=== PATIENT | male | born 1935 | race Caucasian/White ===

== ENCOUNTER 2019-04-21 10:30 | Inpatient (IN) ==
[2019-04-21] MEDS ORDERED: NS 1,000 ML IV ONE ×2 (10:59→12:19)
[2019-04-21] MEDS ORDERED: CARDIZEM IV ONE (10:59)
[2019-04-21] MEDS ORDERED: FENTANYL IV ONE (11:17)
[2019-04-21 11:23] LABS: BASO# 0.03 X1000 (0.0-0.2); BASO% 0.2 % (0.0-0.8); HEMATOCRIT 48.5 % (42.0-52.0); IMM GRAN# 0.05 X1000 (0.0-0.04); IMM GRAN% 0.3 % (0.0-0.5); LYMPH# 0.95 X1000 (1.2-3.4); LYMPH% 5.5 % (20.5-51.1); MCH 30.1 PG (27-31); MCV 91.3 FL (81-99); MONO# 1.14 X1000 (0.11-0.59); MONO% 6.6 % (1.7-9.3); MPV 11.8 FL (7.4-10.4); NEUT# 14.98 X1000 (1.4-6.5); NEUT% 87.4 % (42.2-75.2); PLT 195 X1000 (130-400); RBC 5.31 XMIL (4.7-6.1); RDW 15.1 % (11.5-14.5); WBC 17.15 X1000 (4.8-10.8)
--- NOTE | 2019-04-21 11:38 | Diag Imaging Result Doc PS360 ---
CHEST-PORTABLE - 04/21/2019 INDICATION: afib with rvr COMPARISON: 08/27/2013 FINDINGS: There is cardiomegaly and pulmonary vascular congestion. There are small bilateral pleural effusions. There is some hazy interstitial infiltrate in the lung bases suggestive of mild pulmonary edema. IMPRESSION: Congestive heart failure. Electronically signed by Damián Jimenez 04/21/2019 11:36 AM
[2019-04-21 11:40] LABS: INR 3.86; PROTIME 39.2 Seconds (11.0-16.0); PTT 34.4 Seconds (22.3-41.8)
[2019-04-21 12:02] LABS: ALB/GLOB RATIO 1.5; ALBUMIN 3.7 g/dL (3.5-5.0); CALCIUM 8.7 mg/dL (8.8-10.2); CREATININE 3.6 mg/dL (0.7-1.2); MAGNESIUM 2.9 mg/dL (1.5-2.7); POTASSIUM 5.3 mmol/L (3.5-5.1); TOTAL BILIRUBIN 2.03 mg/dL (0.20-1.00); TOTAL PROTEIN 6.2 g/dL (6.3-8.3)
[2019-04-21] MEDS ORDERED: LASIX IV ONE (12:19)
[2019-04-21] MEDS ORDERED: MAXIPIME 2 GM/NS 2 GM/100 ML IVPB IV ONE (12:20)
[2019-04-21] MEDS: CARDIZEM 100 MG/NS 100 MG/100 ML IVPB IV SCH (12:36)
[2019-04-21] MEDS ORDERED: MERREM 1 GM in NS 50 ML IV ONE (12:39)
[2019-04-21 12:53] LABS: URINE SOURCE CLEAN CATCH
[2019-04-21 12:59] LABS: BILIRUBIN URINE NEGATIVE (NEGATIVE); BLOOD URINE NEGATIVE (NEGATIVE); COLOR YELLOW; GLUCOSE URINE NEGATIVE (NEGATIVE); KETONE URINE NEGATIVE (NEGATIVE); LEUKOCYTES URINE NEGATIVE (NEGATIVE); NITRITE URINE NEGATIVE (NEGATIVE); PH URINE 5.5; PROTEIN URINE 70 mg/dL (NEGATIVE); SP GRAVITY URINE 1.019; TURBIDITY URINE HAZY (CLEAR); UROBILINOGEN URINE NORMAL (NORMAL)
[2019-04-21 13:01] LABS: UR EPITHELIAL CELLS <10 /HPF (<10); URINE BACTERIA NEGATIVE /HPF; URINE RBC 20-40 /HPF (<10); URINE WBC <10 /HPF (<10)
[2019-04-21] MEDS ORDERED: CALCIUM GLUCONATE 1 GM in NS 50 ML IV ONE (13:22)
--- NOTE | 2019-04-21 13:53 | EKG Report ---
Test Performed on : 04/21/2019 10:37:47 AM Test Reason : ED. No order in [place] Blood Pressure : / mmHG Vent. Rate : 157 BPM Atrial Rate : 120 BPM P-R Int : 000 ms QRS Dur : 110 ms QT Int : 306 ms P-R-T Axes : 000 180 262 degrees QTc Int : 494 ms Atrial fibrillation. with rapid ventricular response. Right bundle branch block Anterior infarct , age undetermined T wave abnormality, consider inferior ischemia Abnormal ECG No previous ECGs available Unconfirmed Result
--- NOTE | 2019-04-21 13:58 | SEPSIS: TISSUE PERFUSION ASSMT ---
Sepsis: Tissue Perfusion [facility] - Physical Exam Assessment Date: 04/21/19 Time Assessment Initialized: 13:56 Vital Signs: Last Vital Signs Pulse 138 H 04/21/19 11:48 Resp 17 04/21/19 11:48 BP 112/66 04/21/19 11:48 Height 5 ft 11 in Weight 160 lb 04/21/19 13:56 Vital Signs - 24 hr 04/21/19 10:42 04/21/19 10:47 04/21/19 10:55 Pulse Rate 159 H 156 H 156 H Respiratory Rate 16 17 18 Blood Pressure 57/40 57/40 125/103 04/21/19 11:03 04/21/19 11:07 04/21/19 11:10 Pulse Rate 157 H 169 H 162 H Respiratory Rate 15 16 Blood Pressure 99/81 92/61 100/83 04/21/19 11:15 04/21/19 11:17 04/21/19 11:22 Pulse Rate 158 H 154 H 166 H Respiratory Rate 18 18 14 Blood Pressure 92/61 100/83 106/83 04/21/19 11:27 04/21/19 11:30 04/21/19 11:32 Pulse Rate 139 H 122 H 129 H Respiratory Rate 18 17 16 Blood Pressure 101/74 97/63 93/77 04/21/19 11:37 04/21/19 11:42 04/21/19 11:48 Pulse Rate 122 H 128 H 138 H Respiratory Rate 14 15 17 Blood Pressure 95/73 123/83 112/66 Lung Sounds:: lungs clear Heart Sounds:: Irregular (rate controlled) Capillary Refill Time: Less Than 2 Seconds Peripheral Pulse Evaluation:: radial (R): 2+, radial (L): 2+, dorsalis-pedis (R): 2+, dorsalis-pedis (L): 2+, posterior tibialis (R): 2+, posterior tibialis (L): 2+ Skin Exam:: turgor good - Impression Impression:: Tissue Perfusion Adequate - Plan Plan:: No Change (He has received a full NS 30 mL/kg and Merrem antibiotic within 6 hours per sepsis guidelines)
--- NOTE | 2019-04-21 14:06 | Diag Imaging Result Doc PS360 ---
CT ABDOMEN/PELVIS W/O CONTRAST - 04/21/2019 INDICATION: transaminitis COMPARISON: None FINDINGS: There is a moderate right and small left pleural effusion. There is cardiomegaly. No pericardial effusion. There is COPD in the lung bases. No dense infiltrates. There is mild body wall edema. No radiodense renal stones. No hydronephrosis or hydroureter. There are bilateral renal cysts, including a rather large left renal cyst measuring 5.4 cm. There is trace ascites. There is some dense material in the gallbladder, nonspecific. The liver appears normal. No biliary dilation. Normal pancreas. 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 There is severe diverticulosis of the descending and sigmoid colon. No bowel obstruction or inflammation. There is mild urinary bladder wall thickening with some trabeculation suggesting chronic urinary bladder hypertension. Prostate and rectum are normal. No free air. There are moderate degenerative changes of the spine. No acute or suspicious bony lesion. IMPRESSION: 1. Congestive heart failure. COPD. Body wall edema. Trace ascites. 2. Severe diverticulosis coli. 3. Amorphous dense material in the gallbladder. This may reflect sludge. 4. Urinary bladder wall thickening with reticulation suggesting chronic urinary bladder hypertension. This exam was performed using automated exposure control, adjustment of mA or kV according to patient size, and/or use of iterative reconstruction technique Electronically signed by Damián Jimenez 04/21/2019 2:04 PM
--- NOTE | 2019-04-21 14:32 | PROVIDER DOCUMENTATION ---
This chart was entered by Tiana Livingston Scribe, acting as scribe for Philip Rubi MD. HPI-Cardiac General - General Chief Complaint: HEART ALERT Stated Complaint: SOB Time Seen by Provider: 04/21/19 10:42 Source: patient Allergies/Adverse Reactions: Patient Allergies Allergy/AdvReac Type Severity Reaction Status Date / Time No Known Allergies Allergy Verified 04/21/19 11:13 Home Medications: Home Medication List Medication Instructions Recorded Confirmed Last Taken Type Rivaroxaban [Xarelto] 20 mg PO DAILY 04/21/19 04/21/19 Unknown History - History of Present Illness-Cardiac Nature of Presenting Problem: Patient is a 83 year old male who presents with palpitations. RN states patient was being seen at PCP's office and was informed his heart rate was elevated. RN reports PCP's office reported patient stopped taking his Amiodarone. Patient states he has been taking all of his daily heart medications. states patient is Xarelto. History of A Fib. Denies chest pain, shortness of breath and dizziness. Quality of Pain: reports: none Severity in ED: mild Onset/Duration: just prior to arrival Timing: still present Context/Activities at Onset: reports: light activity Palpitation Quality: fast/pounding heart beat History of arrythmia: reports: A-Fib Associated Symptoms: denies: dizziness, shortness of breath Similar Symptoms Previously?: Yes Recently Seen Here or By Another Healthcare Provider: Yes Review of Systems - Adult - REVIEW OF SYSTEMS - ADULT Constitutional: reports: no symptoms reported Eyes: reports: no symptoms reported Ears, Nose, Mouth & Throat: reports: no symptoms reported Cardiovascular: reports: see HPI, palpitations. denies: chest pain Respiratory: reports: no symptoms reported. denies: shortness of breath Gastrointestinal: reports: no symptoms reported Genitourinary: reports: no symptoms reported Musculoskeletal: reports: no symptoms reported Integumentary: reports: no symptoms reported Neurological: reports: no symptoms reported. denies: dizziness/vertigo Psychiatric: reports: no symptoms reported Endocrine: reports: no symptoms reported Hematologic/Lymphatic: reports: no symptoms reported Allergic/Immunologic: reports: no symptoms reported All Other Systems: Reviewed and Negative Past History - Adult - PAST MEDICAL HISTORY-ADULT Review of Records: reports: Old Records Reviewed, Nursing Assessment Review, Medications Reviewed, Social history reviewed & non-contributory. Major Childhood Illnesses: reports: denies history Cardiovascular: reports: A-Fib Respiratory: reports: denies history Gastrointestinal: reports: denies history Obstetrical/Gynecological: reports: denies history Genitourinary: reports: denies history Musculoskeletal: reports: denies history Neurological: reports: denies history Endocrine/Immune: reports: denies history Other Conditions: reports: denies history - IMMUNIZATION STATUS Childhood Immunizations: See Nurse Assessment Flu Vaccine: See Nurse Assessment - FAMILY HISTORY Family History: reviewed, not pertinent - SOCIAL HISTORY Smoking: denies Substance Use: denies Living Situation: family Physical Exam-General - PHYSICAL EXAM-ADULT Initial Vital Signs Reviewed: Yes - CONSTITUTIONAL General Appearance: appears well, alert, no apparent distress - RESPIRATORY Respiratory: chest non-tender, lungs clear, normal breath sounds - CARDIOVASCULAR Cardiovascular: no gallop, no murmur, tachycardia, irregularly irregular - GASTROINTESTINAL (ABDOMEN) Abdominal Exam: normal bowel sounds, non tender, soft - MUSCULOSKELETAL Extremity: non-tender, normal inspection, no pedal edema - SKIN Integumentary: normal turgor, warm/dry, pallor - NEUROLOGIC Neurologic: grossly normal - PSYCHIATRIC Psych/Mental Status: normal mood/affect, oriented x 3 Progress - PLAN OF CARE/RESULTS Progress/Plan/Lab Results: Vital Signs - 8 hr 04/21/19 10:42 04/21/19 10:47 04/21/19 10:55 Pulse Rate 159 H 156 H 156 H Respiratory Rate 16 17 18 Blood Pressure 57/40 57/40 125/103 04/21/19 11:03 04/21/19 11:07 04/21/19 11:10 Pulse Rate 157 H 169 H 162 H Respiratory Rate 15 16 Blood Pressure 99/81 92/61 100/83 04/21/19 11:15 04/21/19 11:17 04/21/19 11:22 Pulse Rate 158 H 154 H 166 H Respiratory Rate 18 18 14 Blood Pressure 92/61 100/83 106/83 04/21/19 11:27 04/21/19 11:30 04/21/19 11:32 Pulse Rate 139 H 122 H 129 H Respiratory Rate 18 17 16 Blood Pressure 101/74 97/63 93/77 04/21/19 11:37 04/21/19 11:42 04/21/19 11:48 Pulse Rate 122 H 128 H 138 H Respiratory Rate 14 15 17 Blood Pressure 95/73 123/83 112/66 Laboratory Results - last 24 hr 04/21/19 04/21/19 04/21/19 10:58 10:58 10:58 WBC 17.15 H RBC 5.31 Hgb 16.0 Hct 48.5 MCV 91.3 MCH 30.1 MCHC 33.0 RDW Std Deviation 15.1 H Plt Count 195 MPV 11.8 H Immature Gran % (Auto) 0.3 Neut % (Auto) 87.4 H Lymph % (Auto) 5.5 L Beaver % (Auto) 6.6 Eos % (Auto) 0.0 Baso % (Auto) 0.2 Immature Gran # (Auto) 0.05 H Neut # (Auto) 14.98 H Lymph # (Auto) 0.95 L Beaver # (Auto) 1.14 H Eos # (Auto) 0.00 Baso # (Auto) 0.03 PT INR PTT (Actin FS) Sodium 134 L Potassium 5.3 H Chloride 94 L Carbon Dioxide 15 L Anion Gap 25 BUN 115 H Creatinine 3.6 H Estimated GFR/1.73 m2 16 BUN/Creatinine Ratio 31 Glucose 98 Calculated Osmolality 304 Calcium 8.7 L Magnesium 2.9 H Total Bilirubin 2.03 H AST 1458 H ALT 1716 H Alkaline Phosphatase 179 H Troponin T High Sens Bxa-Q-Ukcpylwnfry Pept > 38387 H Total Protein 6.2 L Albumin 3.7 Globulin 2.5 Albumin/Globulin Ratio 1.5 Plasma Lactate Urine Source Urine Color Urine Turbidity Urine pH Ur Specific Natalia Urine Protein Ur Glucose (Stick) Ur Ketones (Stick) Urine Blood Urine Nitrite Urine Bilirubin Urobilinogen Dipstick Urine Leukocytes Urine WBC (Auto) Urine RBC (Auto) U Epithel Cells (Auto) Urine Bacteria (Auto) 04/21/19 04/21/19 04/21/19 11:04 11:04 12:35 WBC RBC Hgb Hct MCV MCH MCHC RDW Std Deviation Plt Count MPV Immature Gran % (Auto) Neut % (Auto) Lymph % (Auto) Beaver % (Auto) Eos % (Auto) Baso % (Auto) Immature Gran # (Auto) Neut # (Auto) Lymph # (Auto) Beaver # (Auto) Eos # (Auto) Baso # (Auto) PT 39.2 H INR 3.86 PTT (Actin FS) 34.4 Sodium Potassium Chloride Carbon Dioxide Anion Gap BUN Creatinine Estimated GFR/1.73 m2 BUN/Creatinine Ratio Glucose Calculated Osmolality Calcium Magnesium Total Bilirubin AST ALT Alkaline Phosphatase Troponin T High Sens Sbb-Y-Wwgycaaccrx Pept Total Protein Albumin Globulin Albumin/Globulin Ratio Plasma Lactate 5.8 H* Urine Source CLEAN CATCH Urine Color YELLOW Urine Turbidity HAZY Urine pH 5.5 Ur Specific Natalia 1.019 Urine Protein 70 A Ur Glucose (Stick) NEGATIVE Ur Ketones (Stick) NEGATIVE Urine Blood NEGATIVE Urine Nitrite NEGATIVE Urine Bilirubin NEGATIVE Urobilinogen Dipstick NORMAL Urine Leukocytes NEGATIVE Urine WBC (Auto) <10 Urine RBC (Auto) 20-40 A U Epithel Cells (Auto) <10 Urine Bacteria (Auto) NEGATIVE 04/21/19 12:50 WBC RBC Hgb Hct MCV MCH MCHC RDW Std Deviation Plt Count MPV Immature Gran % (Auto) Neut % (Auto) Lymph % (Auto) Beaver % (Auto) Eos % (Auto) Baso % (Auto) Immature Gran # (Auto) Neut # (Auto) Lymph # (Auto) Beaver # (Auto) Eos # (Auto) Baso # (Auto) PT INR PTT (Actin FS) Sodium Potassium Chloride Carbon Dioxide Anion Gap BUN Creatinine Estimated GFR/1.73 m2 BUN/Creatinine Ratio Glucose Calculated Osmolality Calcium Magnesium Total Bilirubin AST ALT Alkaline Phosphatase Troponin T High Sens 110 H* Qpk-C-Uhtzwrvsxjh Pept Total Protein Albumin Globulin Albumin/Globulin Ratio Plasma Lactate Urine Source Urine Color Urine Turbidity Urine pH Ur Specific Natalia Urine Protein Ur Glucose (Stick) Ur Ketones (Stick) Urine Blood Urine Nitrite Urine Bilirubin Urobilinogen Dipstick Urine Leukocytes Urine WBC (Auto) Urine RBC (Auto) U Epithel Cells (Auto) Urine Bacteria (Auto) Orders Category Date Time Status Cardiac Monitoring DIRECTED Care 04/21/19 13:39 Active IV Insertion ORDERED Care 04/21/19 13:39 Active Notify MD of + Sepsis Screen NOW Care 04/21/19 13:39 Active CHEST-PORTABLE [RAD] Stat Exams 04/21/19 11:[address] ABDOMEN/PELVIS W/O CONTRAST [CT] Stat Exams 04/21/19 13:04 Completed BLOOD CULTURE [BLDCUL] Stat Lab 04/21/19 11:15 Results BNP [PRO B-NATRIURETIC PEPTIDE] Stat Lab 04/21/19 10:58 Completed CBC WITH ELECTRONIC DIFF [HEME] Stat Lab 04/21/19 10:58 Completed CMP [COMPREHENSIVE METABOLIC PANEL] [CHEM] Stat Lab 04/21/19 10:58 Completed LACTATE, PLASMA [CHEM] Q3H Lab 04/21/19 14:05 Received LACTATE, PLASMA [CHEM] Q3H Lab 04/21/19 17:04 Uncollected LACTATE, PLASMA [CHEM] Stat Lab 04/21/19 11:04 Completed MAGNESIUM [CHEM] Stat Lab 04/21/19 10:58 Completed PROTIME WITH INR [COAG] Stat Lab 04/21/19 11:04 Completed PTT [COAG] Stat Lab 04/21/19 11:04 Completed TROPONIN T HIGH SENSITIVITY Stat Lab 04/21/19 12:50 Completed URINALYSIS W/POSS RFLX CULT [URINALYSIS] Stat Lab 04/21/19 12:35 Completed 0.9% Sodium Chloride Inj [Ns] 1,000 ml Med 04/21/19 10:59 Discontinued IV 999 mls/hr 0.9% Sodium Chloride Inj [Ns] 1,000 ml Med 04/21/19 12:19 Discontinued IV 999 mls/hr Calcium Gluconate 1 gm Med 04/21/19 13:22 Discontinued 0.9% Sodium Chloride Inj [Ns] 50 ml IV NOW CefEPIME 2 GM/NS [Maxipime 2 gm/Ns] Med 04/21/19 12:20 Discontinued 2 gm in 100 ml IV NOW Diltiazem 100 mg/Ns [Cardizem 100 mg/Ns] Med 04/21/19 11:00 Active 100 mg in 100 ml IV As Directed mls/hr Diltiazem [Cardizem] Med 04/21/19 10:59 Discontinued 20 mg IV NOW ONE Fentanyl Med 04/21/19 11:17 Discontinued 50 microgm IV NOW ONE Furosemide [Lasix] Med 04/21/19 12:19 Discontinued 40 mg IV NOW ONE Meropenem [Merrem] 1 gm Med 04/21/19 12:39 Discontinued 0.9% Sodium Chloride Inj [Ns] 50 ml IV NOW Oxygen Device Stat Oth 04/21/19 13:39 Active EKG [EKG] Stat Ther 04/21/19 10:37 Draft EKG [EKG] Stat Ther 04/21/19 14:20 Ordered Admit to the ICU due to NSTEMI, severe sepsis with lactic acidosis, atrial fibrillation with RVR, and acute systolic heart failure exacerbation. Admit with Dr. Norris. Given NS 30 mL/kg bolus and merrem for empiric antibiotic therapy. Also given Lasix and Calcium gluconate. Rate related ischemia on jalousie installer. Patient and family member at bedside aware and agree with plan of care. Result Diagrams: 04/21/19 10:58 04/21/19 10:58 - REASSESSMENT Reassessment #1 Time Reassessed: 10:56 Status: improving (patient's systolic pressure is 125) - EKG 1 Time of EKG reading by physician:: 10:37 EKG Read and Signed by:: Orlando Hicks EKG Interpretation (*Must complete 3 of following elements*): Abnormal Rate: 157 Rhythm: atrial fibrillation with rapid ventricular response [place]: normal QRS: RBB Comments: abnormal ECG - XRAY 1 XRAY Study: Chest Impression: See EMR Report ( CHEST-PORTABLE - 04/21/2019 INDICATION: afib with rvr COMPARISON: 08/27/2013 FINDINGS: There is cardiomegaly and pulmonary vascular congestion. There are small bilateral pleural effusions. There is some hazy interstitial infiltrate in the lung bases suggestive of mild pulmonary edema. IMPRESSION: Congestive heart failure. Electronically signed by Damián Jimenez 04/21/2019 11:36 AM 04/21/19 1136 Interpreting Physician: Damián Jimenez MD Dictated Date/Time: 04/21/19 1134 cc: Philip Rubi MD; Aleksander Overton MD) - CT/MRI 1 CT Study: Abdomen, Pelvis Impression: See EMR Report ( CT ABDOMEN/PELVIS W/O CONTRAST - 04/21/2019 INDICATION: transaminitis COMPARISON: None FINDINGS: There is a moderate right and small left pleural effusion. There is cardiomegaly. No pericardial effusion. There is COPD in the lung bases. No dense infiltrates. There is mild body wall edema. No radiodense renal stones. No hydronephrosis or hydroureter. There are bilateral renal cysts, including a rather large left renal cyst measuring 5.4 cm. There is trace ascites. There is some dense material in the gallbladder, nonspecific. The liver appears normal. No biliary dilation. Normal pancreas. 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 There is severe diverticulosis of the descending and sigmoid colon. No bowel obstruction or inflammation. There is mild urinary bladder wall thickening with some trabeculation suggesting chronic urinary bladder hypertension. Prostate and rectum are normal. No free air. There are moderate degenerative changes of the spine. No acute or suspicious bony lesion. IMPRESSION: 1. Congestive heart failure. COPD. Body wall edema. Trace ascites. 2. Severe diverticulosis coli. 3. Amorphous dense material in the gallbladder. This may reflect sludge. 4. Urinary bladder wall thickening with reticulation suggesting chronic urinary bladder hypertension. This exam was performed using automated exposure control, adjustment of mA or kV according to patient size, and/or use of iterative reconstruction technique Electronically signed by Damián Jimenez 04/21/2019 2:04 PM 04/21/19 1404 Interpreting Physician: Damián Jimenez MD Dictated Date/Time: 04/21/19 1401 cc: Philip Rubi MD; Aleksander Overton MD) Departure - Departure Date of Disposition Decision: 04/21/19 Time of Disposition Decision: 14:28 DIAGNOSIS: NSTEMI (non-ST elevated myocardial infarction), Atrial fibrillation with RVR, Systolic CHF, acute, Lactic acidosis, Septic shock, Transaminitis, Hyperbilirubinemia, Acute kidney injury, Supratherapeutic INR, Leukocytosis, Hyperkalemia, Hypocalcemia Disposition: ADMITTED INPATIENT 09 Certified Medical Emergency: Emergent Condition: Critical Referrals and Follow-Ups: Aleksander Overton MD [Primary Care Provider] - - Critical Care Note This patient required my direct & personal management of CC.: Yes Total Time (mins): 60 Critical Care Statement: This patient required my direct personal management to treat or rule out processes, the absence of which, could potentiallly result in sudden, clinically significant life or limb threatening deterioration. Attestation - Physician/ DORIAN Attestation Patient care was provided by Advanced Practice Provider:: No The physician spent face to face time with patient:: Yes Advanced Practice Provider documentation review:: Supervising physician onsite and consulted in the evaluation and care of this patient. The physician did have a face to face encounter with the patient. This chart was documented by the indicated scribe, (Tiana Livingston Scribe) and accurately reflects the services I performed and decisions made by me, Philip Rubi MD, as attested by the provider's signature.
[2019-04-21] MEDS ORDERED: ZOFRAN IV PRN (15:56)
[2019-04-21 15:57] LABS: URINE SOURCE VOIDED
[2019-04-21 16:02] LABS: BILIRUBIN URINE NEGATIVE (NEGATIVE); BLOOD URINE NEGATIVE (NEGATIVE); COLOR YELLOW; GLUCOSE URINE NEGATIVE (NEGATIVE); KETONE URINE NEGATIVE (NEGATIVE); LEUKOCYTES URINE NEGATIVE (NEGATIVE); NITRITE URINE NEGATIVE (NEGATIVE); PROTEIN URINE 50 mg/dL (NEGATIVE); SP GRAVITY URINE 1.017; TURBIDITY URINE HAZY (CLEAR); UROBILINOGEN URINE NORMAL (NORMAL)
[2019-04-21 16:11] LABS: UR EPITHELIAL CELLS <10 /HPF (<10); URINE BACTERIA NEGATIVE /HPF; URINE RBC <10 /HPF (<10); URINE WBC <10 /HPF (<10)
[2019-04-21 16:32] LABS: URINE CASTS NONE SEEN; URINE CRYSTALS CA OXALATE PRESENT; URINE YEAST NONE SEEN
[2019-04-21 16:50] LABS: BASO# 0.17 X1000 (0.0-0.2); BASO% 0.9 % (0.0-0.8); EOS# 0.01 X1000 (0.0-0.7); EOS% 0.1 % (0.0-10.0); HEMOGLOBIN 15.4 g/dL (14.0-18.0); IMM GRAN# 0.14 X1000 (0.0-0.04); IMM GRAN% 0.8 % (0.0-0.5); LYMPH# 0.94 X1000 (1.2-3.4); LYMPH% 5.2 % (20.5-51.1); MCH 30.6 PG (27-31); MCHC 32.8 g/dL (33-37); MCV 93.4 FL (81-99); MONO# 1.51 X1000 (0.11-0.59); MONO% 8.3 % (1.7-9.3); MPV 11.9 FL (7.4-10.4); NEUT# 15.43 X1000 (1.4-6.5); NEUT% 84.7 % (42.2-75.2); PLT 138 X1000 (130-400); RBC 5.03 XMIL (4.7-6.1); RDW 15.3 % (11.5-14.5)
--- NOTE | 2019-04-21 17:03 | HISTORY AND PHYSICAL ---
ADDENDUM TO HISTORY AND PHYSICAL: The patient seen and examined by me face to face. All the laboratory, vital signs and images were reviewed. The patient basically was sent from his primary care physician's office due to palpitations. As per the and the daughter at the bedside he has been sick for the past 2 weeks and actually he was treated for some kind of respiratory infection with said cefdinir twice a day for 10 days and he took it from 04/08/2019. As well he took some steroids. It looks like also he was on amiodarone but he stopped taking this treatment long time ago. He was all he was only taking Xarelto at home. Now he presented with multiorgan failure including low blood pressure, with atrial fibrillation, RVR, likely acute kidney injury and elevated LFTs. This could be related to hypotension. Initially when this patient came to the emergency department, his blood pressure was around 57/[address] He received a couple a couple boluses of fluid. He seems to be septic but I do not have any clear source of infection. As per the , he has been coughing with some phlegm, but that is better probably because he was taking treatment. I will continue with antibiotics. I will transfer this patient to the ICU and/or PVC. He has been placed on diltiazem drip. For his fluid overload I will give him some Lasix. I discussed with the family about the because this patient is overloaded, but he has a kidney dysfunction so this can makes this patient worse. He already received 1 treatment with Lasix in the emergency department. I will repeat also a echocardiogram. It looks like his previous echocardiogram done a couple years ago showed an ejection fraction of 60 to 65 percent but an increased pulmonary pressure at 43 mmHg. I will consult Cardiology Department in the morning. I will get a new chest x-ray also in the morning. On my physical exam he has bilateral crackles from the midlung down to the base of the lungs. He has basically anasarca. Heart rate is arrhythmic/irregular, tachycardic. I had a conversation with the patient and the family, which is at the bedside and I told them that he has multiorgan failure. He is remarkably sick. He may need some vasopressors in the near future. He has he has some fluid overload, and possible infection. On top of that he is 83-year- old, and it looks like he has not been taking his medications as prescribed, especially for his atrial fibrillation. The only treatment that he was getting was at home was Xarelto, which I will stop because he is coagulopathic with an INR of 3.8. He has some electrolyte abnormality including hyponatremia, hyperkalemia, hypochloremia. The proBNP is elevated, more than 35,000, and of course he has elevated troponin. He is not complaining of chest pain at this moment, but he has been having shortness of breath mostly for the past couple weeks. We discussed the advanced directive with the family and the patient and the patient has requested to be full code for now but if something happens to him we will discuss again with the family to decide if this patient needs to continue with aggressive treatment or just comfort measures. This discussion was performed today with the patient and the family for about 50 minutes. Again I agree with the rest of the nurse practitioner's assessment and plan. . cc: Aroldo Alva MD
[2019-04-21 17:18] LABS: ALB/GLOB RATIO 1.3; ALBUMIN 3.2 g/dL (3.5-5.0); CALCIUM 8.9 mg/dL (8.8-10.2); CREATININE 3.1 mg/dL (0.7-1.2); MAGNESIUM 2.7 mg/dL (1.5-2.7); PHOSPHORUS 6.7 mg/dL (2.7-4.5); POTASSIUM 4.9 mmol/L (3.5-5.1); TOTAL BILIRUBIN 1.74 mg/dL (0.20-1.00); TOTAL PROTEIN 5.6 g/dL (6.3-8.3)
--- NOTE | 2019-04-21 17:20 | Diag Imaging Result Doc PS360 ---
EXAM: US ABDOMEN-COMPLETE INDICATION: elevated LFT, abnormal CT scan COMPARISON: None. FINDINGS: There is mild echogenic sludge in the gallbladder lumen. The gallbladder wall is markedly thickened measuring up to 7 mm in thickness. Cholecystitis cannot be excluded. The common bile duct is dilated measuring up to 9 mm in diameter. Sonographic Gandhi's sign was reported to be negative. The liver is grossly unremarkable. There is pulsatile portal venous flow that is likely related to congestive heart failure. The pancreas is largely obscured. The aorta and IVC are grossly unremarkable. The spleen is unremarkable. There are bilateral renal cysts. The renal cortical echotexture is increased bilaterally, which is a nonspecific indicator of medical renal disease. IMPRESSION: 1.Echogenic sludge in the gallbladder lumen with significant thickening of the gallbladder wall. Cholecystitis cannot be excluded. 2.Dilated common bile duct. 3.Increased renal cortical echotexture, which is a nonspecific indicator of medical renal disease. Electronically signed by Henri Murguia 04/21/2019 5:18 PM
[2019-04-21 17:25] LABS: ANISOCYTOSIS OCCASIONAL; LARGE PLATELETS OCCASIONAL; LYMPHS 2 % (21-51); MONO 6 % (1-9); NRBC 2 % (0-0); SEGS 92 % (42-75); TARGET CELLS OCCASIONAL
[2019-04-21] MEDS ORDERED: LEVOPHED 8 MG in D5 1/2 NS 250 ML IV SCH (19:15)
[2019-04-21 19:52] LABS: UR CREAT RANDOM 224.5 mg/dL (14-26)
--- NOTE | 2019-04-21 20:14 | HISTORY AND PHYSICAL ---
CHIEF COMPLAINT: Generalized weakness, increasing shortness of breath. HISTORY OF PRESENT ILLNESS: This is an 83-year-old gentleman who presented to the emergency room from his primary care physician's office after being found to be in atrial fibrillation with rapid ventricular rate in the 180s and a blood pressure of 80/40. Pressures reportedly were as low as 57/42. The patient has a history of atrial fibrillation. He states that he stopped taking amiodarone sometime in the last year because he wanted to drink and people had told him that he could not take amiodarone while drinking. On arrival to the emergency room, blood pressure was 57/40, with heart rates in the 150 to 160 range. He was started on a Cardizem drip and at the time of my exam he has got a blood pressure of 113/69 with a heart rate of 119. The patient does not feel palpitations. He does report that over the last 2 weeks he has had increasing shortness of breath and dyspnea on exertion. The and daughter state that the patient was evaluated at a walk-in clinic and diagnosed with a respiratory infection and given cefdinir b.i.d. for 10 days as well as steroids. They state that he had no change in symptoms. PAST MEDICAL HISTORY: Atrial fibrillation. PAST SURGICAL HISTORY: Denies. SOCIAL HISTORY: He denies any tobacco or illicit drug use. He is . He lives with his . He has children that are close and active in his care. He does drink alcohol. ALLERGIES: No known drug allergies. HOME MEDICATIONS: Xarelto 20 mg p.o. daily. REVIEW OF SYSTEMS: Discussed with patient with pertinent positives stated in the HPI. He denied any syncope or dizziness, any chest pain or palpitations, a productive cough, any fevers or chills, any nausea, vomiting, diarrhea, constipation, black or bloody vomitus or stools, any hematuria, dysuria, frequency or urgency. PHYSICAL EXAMINATION: GENERAL: This is a very pleasant 83-year-old gentleman who is sitting up on the stretcher in the emergency room in no distress. VITAL SIGNS: Blood pressure is 113/69 with a heart rate of 120, respirations are 18, O2 saturations are 91 to 94 percent on room air. HEENT: Head is normocephalic, atraumatic. Mucous membranes are moist. NECK: Supple with trachea midline. CARDIOVASCULAR: Irregularly irregular rate and rhythm. S1 and S2 are appreciated. Breath sounds are clear. He does have some rhonchi scattered. He has bilateral lower extremity edema. Calves are nontender with peripheral pulses palpable x4 extremities. PULMONARY: He has got scattered rhonchi throughout that do not clear to cough. Chest rises and falls symmetric with respiration. GASTROINTESTINAL: Abdomen is soft, nontender, nondistended. Bowel sounds in all 4 quadrants. SKIN: Warm and dry. NEUROLOGIC: He is alert and oriented x3. LABS: WBC is 17.1 with hemoglobin 16, hematocrit 48.5, and platelets of 195,000. INR is 3.86. Sodium is 134, potassium 5.3, BUN 115, creatinine 3.6 with a glucose of 98, magnesium is 2.9, total bilirubin is 2.03 with an AST of 1458, ALT of 1716, alkaline phosphatase of 179. ProBNP is greater than 35,000. Troponin is 110 with a lactate of 5.8. Blood cultures and urine culture are pending. IMAGING: Chest x-ray reveals congestive heart failure. CT of the abdomen and pelvis revealed congestive heart failure with COPD and body wall edema, severe diverticulosis coli and dense material in the gallbladder that may reflect sludge and urinary bladder wall thickening with reticulations suggesting chronic urinary bladder hypertension. ASSESSMENT AND PLAN: 1. Atrial fibrillation with rapid ventricular response. continue Cardizem. 2. Chronic anticoagulation now with hypercoagulation. hold his Xarelto and monitor. 3. Acute kidney injury. obtain a renal ultrasound. We will draw labs, obtain a urine creatinine, protein, urine sodium. Check a urinalysis and urine culture. consult Dr. Albrecht with Nephrology. 4. Elevated liver function tests in a patient with dense material in the gallbladder that may reflect sludge. We will obtain a renal ultrasound, abdominal ultrasound and consult General Surgery if required. We will check a hepatitis profile. 5. Hyperkalemia. Give IV hydration and recheck labs. 6. Possible congestive heart failure. We will get an echocardiogram, daily weights, intake and output and we will consult Cardiology. 7. Leukocytosis. Blood cultures and urine cultures are pending. We will start Merrem renally dosed. 8. Hypotension. Levophed as needed. Dictated by PASQUALE Beltran for Aroldo Alva MD cc: PASQUALE Beltran MD MTDD
[2019-04-21] MEDS: LASIX IV SCH (21:33)
[2019-04-21] MEDS: PRILOSEC PO SCH (21:44)
[2019-04-22] MEDS: CARDIZEM 100 MG/NS 100 MG/100 ML IVPB IV SCH ×3 (00:45→18:28)
[2019-04-22] MEDS: NS IV SCH ×2 (04:00→14:23)
[2019-04-22] MEDS: MERREM IV SCH ×2 (04:00→14:23)
[2019-04-22] MEDS: ZYVOX 600 MG/D5W 600 MG/300 ML IVPB IV SCH ×2 (06:49→17:55)
--- NOTE | 2019-04-22 07:01 | Diag Imaging Result Doc PS360 ---
EXAM: CHEST-PORTABLE HISTORY: dyspnea TECHNIQUE: Single view COMPARISON: 04/21/2019 FINDINGS: There are infiltrates and atelectasis in the lung bases, right greater than left. Heart is mildly enlarged and there is mild pulmonary edema as well as pleural effusions. IMPRESSION: Interval worsening Electronically signed by Maury Sarabia 04/22/2019 6:58 AM
[2019-04-22 07:21] LABS: BASO# 0.03 X1000 (0.0-0.2); BASO% 0.2 % (0.0-0.8); EOS# 0.01 X1000 (0.0-0.7); EOS% 0.1 % (0.0-10.0); HEMATOCRIT 47.8 % (42.0-52.0); HEMOGLOBIN 15.7 g/dL (14.0-18.0); IMM GRAN# 0.04 X1000 (0.0-0.04); IMM GRAN% 0.3 % (0.0-0.5); LYMPH# 1.12 X1000 (1.2-3.4); LYMPH% 7.4 % (20.5-51.1); MCH 30.3 PG (27-31); MCHC 32.8 g/dL (33-37); MCV 92.3 FL (81-99); MONO# 0.98 X1000 (0.11-0.59); MONO% 6.5 % (1.7-9.3); MPV 11.8 FL (7.4-10.4); NEUT% 85.5 % (42.2-75.2); PLT 139 X1000 (130-400); RBC 5.18 XMIL (4.7-6.1); RDW 15.2 % (11.5-14.5); WBC 15.18 X1000 (4.8-10.8)
--- NOTE | 2019-04-22 07:49 | EKG Report ---
Test Performed on : 04/22/2019 06:54:29 AM Test Reason : CHF, elevated troponin Blood Pressure : / mmHG Vent. Rate : 124 BPM Atrial Rate : 107 BPM P-R Int : 000 ms QRS Dur : 116 ms QT Int : 326 ms P-R-T Axes : 000 253 -18 degrees QTc Int : 468 ms Atrial fibrillation. with rapid ventricular response. Right superior axis deviation Incomplete right bundle branch block Possible Anterior infarct (cited on or before 21-APR-2019) Abnormal ECG When compared with ECG of 21-APR-2019 10:37, (Unconfirmed) Questionable change in QRS axis Serial changes of evolving Anterior infarct present Confirmed by Raulito SCHULTE, Vargas Naik ([id number]) on 04/24/2019 2:32:31 PM
[2019-04-22 07:56] LABS: ALB/GLOB RATIO 1.1; CREATININE 3.2 mg/dL (0.7-1.2); MAGNESIUM 2.7 mg/dL (1.5-2.7); TOTAL BILIRUBIN 1.44 mg/dL (0.20-1.00); TOTAL PROTEIN 5.7 g/dL (6.3-8.3)
[2019-04-22 08:16] LABS: LYMPHS 12 % (21-51); MONO 4 % (1-9); SEGS 84 % (42-75)
[2019-04-22] MEDS: LASIX IV SCH ×2 (09:00→20:43)
[2019-04-22] MEDS: PRILOSEC PO SCH ×2 (09:03→20:53)
[2019-04-22] MEDS ORDERED: SODIUM BICARBONATE 8.4% IV ONE (12:11)
--- NOTE | 2019-04-22 12:32 | PROGRESS NOTE ---
DATE: 04/22/2019 SUBJECTIVE: This patient is resting comfortably in bed. He is still complaining of shortness of breath. He still has some fluid overload. His Odonnell catheter has been removed because it was not working. He was leaking around the Odonnell and his penis. Nephrology Department already evaluated this patient, pending recommendations. This patient basically has some multiorgan failure, including elevated LFTs and acute kidney injury, and they were completely normal a few years ago. On top of that, his blood pressure has been borderline low, but the MAP has been stable. He has atrial fibrillation with rapid ventricular response at this moment. No changes compared with yesterday. Continue with Monserrat murphy. Cardiology Department has been consulted. As per the patient and the , he has been having atrial fibrillation for a very long time, but he is only taking the blood thinners. He is not taking any kind of medication to control his heart rate, and I believe this has been happening for a very long time. I do believe he should be on amiodarone at home, but like I said, he was not taking it. Even though he feels just a little bit better compared with yesterday, I do believe this patient is still remarkably sick. I discussed the case with the family, and I told them that he was remarkably sick, and they seem to understand. OBJECTIVE: Vital Signs: Temperature 97.9 degrees, pulse 138, respiratory rate 17, blood pressure 91/68, oxygen saturation 96 on 2 L of nasal cannula. HEENT: Head normocephalic. No trauma. PERRLA. Neck: Supple. No JVD. No masses. Central trachea. Chest: Coarse breath sounds bilaterally, mostly at the bases, with crepitus and rhonchi at the bases. Some crackles as well, mostly on the right side. Abdomen: Soft, nontender, nondistended. No hepatosplenomegaly. Abdominal wall edema. Extremities: There is 2+ to 3+ lower extremity edema. No clubbing. No cyanosis. Neurological: The patient is awake. He has generalized weakness. He is answering my questions. LABORATORY DATA: WBC 15.1, hemoglobin 15.7, hematocrit 47.8, platelets 139,000. Sodium 134, potassium 5, chloride 101, bicarbonate 11, BUN 115, creatinine 3.2, calcium 8. Phosphorus 7. AST 649, ALT 1297, alkaline phosphatase 143, albumin 3. ASSESSMENT AND PLAN: 1. Atrial fibrillation with rapid ventricular response. Continue with Cardizem drip. He is still on rapid ventricular response. Cardiology Department has been consulted. Magnesium level is within normal limits. 2. Possible sepsis due to respiratory infection. Apparently, he was treated for a recent respiratory infection with steroids and antibiotics. Since his white blood cell count is high, he has bilateral infiltrates, mostly on the right base, concerning for pneumonia, I will continue with antibiotics and vasopressors as needed. 3. Acute kidney injury. We will obtain a renal ultrasound. Nephrology Department has been consulted. 4. Elevated liver function tests. This is getting better. If this gets worse, probably we will consult Surgery Department to evaluate this patient. 5. Hyperkalemia, resolved. 6. Possible congestive heart failure in a patient with uncontrolled atrial fibrillation. Will wait for an echocardiogram, which has been already done, pending results. 7. Leukocytosis. Blood culture and urine culture did not show any bacteria at this moment. We will wait more time for this. In the meantime, will continue with antibiotics. This patient seems to be remarkably sick. I have been discussing the case with the family at the bedside. They seem to understand. The patient has been transferred to the intensive care unit. Will continue to monitor this patient closely. CRITICAL CARE TIME: 35 minutes. cc: Aroldo Alva MD
--- NOTE | 2019-04-22 13:23 | ECHO REPORT ---
ORDER DATE: 04/21/2019 INTERPRETING PHYSICIAN: Dr. Enio Mccrary. ECHOCARDIOGRAPHIC MEASUREMENTS: 1. Interventricular septum: 1.0 cm. 2. Left ventricular posterior wall: 1.0 cm. 3. Diastolic diameter: 5.6 cm. 4. Left atrium: 4.5 cm. 5. Aorta: 2.9 cm. SUMMARY OF THE 2-DIMENSIONAL IMAGIN. Aortic valve leaflets were trileaflet. 2. Mitral valve was normal. 3. Pulmonic valve was normal. There is mild pulmonary regurgitation. 4. Tricuspid valve was normal. 5. Tachycardia was noted, heart rate varying from 130 to 140 beats per minute. 6. There is severe biatrial enlargement. 7. Normal left ventricular cavity size. Estimated ejection fraction of 15%. There is severe global hypokinesis. 8. Dilated right ventricle with reduced right ventricular systolic function. 9. There is moderate mitral regurgitation. 10. There is moderate tricuspid regurgitation. Peak velocity across the tricuspid valve was 2.4 m/sec. 11. Pulmonary artery systolic pressure of 33 to 38 mmHg. 12. There is no aortic stenosis or regurgitation. 13. There is no pericardial effusion. cc: MD Maite Nolen CRNP
--- NOTE | 2019-04-22 13:36 | EKG Report ---
Test Performed on : 04/22/2019 1:26:27 PM Test Reason : afib Blood Pressure : / mmHG Vent. Rate : 136 BPM Atrial Rate : 093 BPM P-R Int : 000 ms QRS Dur : 108 ms QT Int : 332 ms P-R-T Axes : 000 246 080 degrees QTc Int : 499 ms Atrial fibrillation. with rapid ventricular response. with premature ventricular or aberrantly conduc august complexes. Right superior axis deviation ST & T wave abnormality, consider lateral ischemia Abnormal ECG When compared with ECG of 22-APR-2019 06:54, (Unconfirmed) No significant change was found Confirmed by Raulito SCHULTE, Vargas Naik ([id number]) on 04/24/2019 2:33:28 PM
[2019-04-22] MEDS ORDERED: LANOXIN IV ONE (14:12)
[2019-04-22] MEDS ORDERED: LOPRESSOR IV SCH (14:15)
--- NOTE | 2019-04-22 14:52 | CARDIOLOGY CONSULTATION ---
DATE: 04/22/2019 CHIEF COMPLAINT: Generalized weakness, shortness of breath. HISTORY OF PRESENT ILLNESS: Mr. Coombs is an 83-year-old, white male with a history of a nonischemic cardiomyopathy atrial fibrillation. He is normally followed by Dr. Mccrary. The last visit was around 8 to 9 months ago. The patient reports he has been feeling more weak and short of breath and edematous for around a week. On further questioning, it seems like it has been going on much longer than that and the patient has not been telling family. He denies any overt orthopnea. He had discussions with Dr. Mccrary 8 to 9 months ago at clinic and he refused taking further medications and was only willing to take his anticoagulant. The patient denies any chest pain. He has not had any recent fevers. He has denied any sensation of palpitations. PAST MEDICAL HISTORY: 1. Significant for nonischemic cardiomyopathy. His cardiac catheterization was in 2011. At that time, he had an EF around 30%. He had 10 to 30 percent disease in the LAD system. Circumflex had 30 to 40 percent disease. RCA mid 40% disease. 2. Atrial fibrillation. Only taking Xarelto. 3. Hypertension. 4. Tobacco abuse. 5. COPD. 6. History of prostate cancer. SOCIAL HISTORY: Denies tobacco, alcohol use or illicit drugs. He is . His is present at the bedside. FAMILY HISTORY: Significant for hypertension. REVIEW OF SYSTEMS: A 10 system review of systems is negative except for those things mentioned in HPI. PHYSICAL EXAMINATION: Vital Signs: He is afebrile. His heart rates have been anywhere from the 120s to 140s. His blood pressure is 105/71. General: He is in no acute distress. HEENT: Oropharynx is moist. Poor dentition. Eye examination is pink conjunctivae. White sclerae. Neck: Examination shows no obvious thyromegaly or thyroid tenderness. Cardiovascular: Cardiovascularly, he sounds to be in an irregularly irregular tachycardic rhythm. He has no obvious murmurs. He has no S3. Extremities: He has cool to the touch, very distal extremities with 2+ bilateral lower extremity edema noted. Chest: Exam sounds relatively clear but he has a poor inspiratory effort. He has no increased work of breathing. Abdomen: Soft, nontender. No obvious organomegaly. Skin: Warm and dry throughout without any rashes. Neurological: He is moving all extremities well. He has no lateralizing deficits. PERTINENT DATA: Abdomen and pelvis CT demonstrates body wall edema, trace ascites, severe diverticulosis and gallbladder sludge. His chest x-ray today demonstrates infiltrate and atelectasis in the lung bases right greater than left, mild cardiomegaly, pulmonary edema noted. His EKG on the at 1037 hours shows rapid atrial fibrillation. Rate of 157 beats per minute. Next EKG occurring on the at 0654 hours again shows rapid atrial fibrillation rate of 124 beats per minute and his final EKG occurring on the at 1326 hours for rapid atrial fibrillation rate of 136 beats per minute. His white count is 15.1. His hematocrit is 47. His platelet count is 139,000. He has a left shift. His sodium is 134, potassium is 5, BUN 115 creatinine 3.2. Yesterday it was 107 and 3.1. His AST is 649, ALT 1297. Yesterday it was 1279 and 1625 respectively. His albumin is 3.0. His initial 2 troponins were 110 and 114 respectively with a proBNP greater than 35,000. ASSESSMENT: Mr. Coombs is an 83-year-old gentleman who presents in what appears to be cardiogenic shock, rapid atrial fibrillation, acute kidney injury, shock liver. PLAN: I have had at length discussions with him and his regarding code status. It does not seem that they are grasping the severity of the situation. They were not ready yet to make decisions about that. He had a negative bilateral lower extremity venous Doppler. We will try to slow his rate with a 1 time dose of digoxin and p.r.n. Lopressor in addition to his current diltiazem infusion. His shock liver is making it difficult for us to use amiodarone at this point. We will try to continue to diurese the patient. He is certainly in a very grave situation considering his multiorgan failure, age and unwillingness to take medication previously. cc: Ant Andersen MD
[2019-04-22 15:29] LABS: HEPATITIS PROFILE ACUTE SEE COMMENTS
[2019-04-22] MEDS: LOPRESSOR IV PRN (18:02)
--- NOTE | 2019-04-22 19:10 | PROVIDER PROGRESS NOTE ---
Progress Note Chief complaint: I was peeing a lot for 2 days. HPI: Mr. Saucedo is an 83-year-old white male with a past medical history of atrial fibrillation requiring cardioversion and alcohol dependence. His trouble started two days ago when he was having frequency and hesitancy in his urine. He says he has urgency first and then has to strain to successfully urinate. He has a history of prostate cancer in 2008 that required chemotherapy. The patient says on average he experiences nocturia about 2-6 times a night. 2 weeks ago he was seen in a [facility] for upper respiratory symptoms of cough with thin white production and exertional shortness of breath. He denied fever, chills, or nocturnal orthopnea. He was given cefdinir and prednisone. Since completing his medication his cough has resolved, but he remains short of breath and now has lower extremity edema. His primary, Dr. Overton, saw him in the office yesterday and found him to be tachycardic and hypotensive. Subsequently he came to the emergency department. His initial blood pressure was 57/40 with atrial fibrillation rate 150s. His admitting Creatinine was 3.1 and BUN 107. He voices feeling fine other than his urinary complaints and shortness of breath. He denies nausea and vomiting, chest pain, productive cough, decrease in appetite, or blood in his urine or stool. His is at bedside and says that Dr. Overton told them that he was having positive occult stools. Past medical history: atrial fibrillation requiring cardioversion. Followed by Dr. Mccrary. Past surgical history: none Social history: The patient lives at home with his . He is alcohol dependent but did not voice how much he drinks per day. He denies any tobacco or illicit drug use. Family history: non contributory Allergies: none Home Medications: Xarelto Review of systems: All pertinent positives listed above in the HPI. Physical exam:temperature 97.9, pulse 123, respirations 14, blood pressure 100/63, 02 sat 95% on 2 L nasal cannula. General: chronically ill, white male lying in bed in no acute distress. HEENT: normocephalic, atraumatic, pupils equal and reactive. Conjunctiva pale. Mucous membranes dry. Skin: dry with purple areas to his ear lobes, tip of tongue, elbows, and toes on bilateral feet. Neck: supple, JVD noted in upright position. Cardiovascular: S1, S2, tachycardic rate and irregular rhythm. No gallops. Respiratory: clear anteriorly Abdomen: soft, nontender, nondistended. Bowel sounds present. : non-inspected, Odonnell in place with leaking urine per staff. Extremities: 2-3+ pitting edema to BLE Neurological: alert, oriented to person, place, and time with some apprehension. Labs: WBC 15.18, hemoglobin 15.7, hematocrit 47.8, platelet count 139, sodium 134, potassium 5.0, chloride 101, carbon dioxide 11, BUN 115, creatinine 3.2. Urine: random creatinine 224.5, random total protein 94.0, random sodium 12. Imaging: chest x-ray impression infiltrates and atelectasis in the lung bases, right greater than left. Heart is mildly enlarged and there is mild pulmonary edema as well as pleural effusions. Abdominal pelvic CT without contrast impression congestive heart failure, COPD, body wall edema, trace ascites, severe diverticulosis coli, suggested gallbladder sludge, urinary bladder wall thickening with reticulation suggesting chronic urinary bladder hypertension. Abdominal ultrasound impression echogenic sludge in the gallbladder, dilated common bile duct, increased renal cortical echotexture. Assessment and plan: Acute kidney injury. Prerenal azotemia from cardiogenic shock. He remains on cardizem drip with a heart rate in the 120s. Odonnell in place. Complete routine data collection. Blood pressure. Stable on levophed. Fluid volume. Expanded. Lasix ordered. Anemia. Stable. Electrolytes. Anion gap acidosis. Seondary to lactic acidosis and renal failure. Lactate 5.6. Treat cardiogenic shock and observe. Medication review.
[2019-04-22] MEDS ORDERED: NEO-SYNEPHRINE 50 MG in NS 250 ML IV SCH (21:00)
[2019-04-23] MEDS: MERREM IV SCH (01:40)
[2019-04-23] MEDS: NS IV SCH (01:40)
[2019-04-23 05:38] LABS: BASO# 0.02 X1000 (0.0-0.2); BASO% 0.2 % (0.0-0.8); EOS# 0.07 X1000 (0.0-0.7); EOS% 0.6 % (0.0-10.0); HEMATOCRIT 46.1 % (42.0-52.0); HEMOGLOBIN 15.6 g/dL (14.0-18.0); IMM GRAN# 0.03 X1000 (0.0-0.04); IMM GRAN% 0.2 % (0.0-0.5); LYMPH# 0.95 X1000 (1.2-3.4); LYMPH% 7.8 % (20.5-51.1); MCH 30.3 PG (27-31); MCHC 33.8 g/dL (33-37); MCV 89.5 FL (81-99); MONO# 1.07 X1000 (0.11-0.59); MONO% 8.8 % (1.7-9.3); MPV 11.4 FL (7.4-10.4); NEUT# 9.98 X1000 (1.4-6.5); NEUT% 82.4 % (42.2-75.2); PLT 116 X1000 (130-400); RBC 5.15 XMIL (4.7-6.1); RDW 14.9 % (11.5-14.5); WBC 12.12 X1000 (4.8-10.8)
[2019-04-23] MEDS: ZYVOX 600 MG/D5W 600 MG/300 ML IVPB IV SCH ×2 (05:52→18:01)
[2019-04-23 06:41] LABS: ALB/GLOB RATIO 1.3; CALCIUM 7.8 mg/dL (8.8-10.2); MAGNESIUM 2.6 mg/dL (1.5-2.7); PHOSPHORUS 5.3 mg/dL (2.7-4.5); TOTAL BILIRUBIN 1.37 mg/dL (0.20-1.00); TOTAL PROTEIN 5.4 g/dL (6.3-8.3)
[2019-04-23 06:49] LABS: POTASSIUM 4.3 mmol/L (3.5-5.1)
[2019-04-23] MEDS: CARDIZEM 100 MG/NS 100 MG/100 ML IVPB IV SCH (06:52)
[2019-04-23] MEDS: PRILOSEC PO SCH ×2 (06:54→20:00)
--- NOTE | 2019-04-23 07:28 | Diag Imaging Result Doc PS360 ---
CHEST-PORTABLE - 04/23/2019 INDICATION: dyspnea COMPARISON: 04/22/2019 FINDINGS: There is decreased opacification/effusion at the right lung base. There is decrease in right basilar infiltrate as well. Stable small left pleural effusion. Stable cardiomegaly and pulmonary vascular congestion. Stable finding interstitial background pulmonary edema. IMPRESSION: Improved aeration of the right lung base. Electronically signed by Damián Jimenez 04/23/2019 7:25 AM
--- NOTE | 2019-04-23 08:40 | PROGRESS NOTE ---
DATE: 04/23/2019 SUBJECTIVE: The patient is resting comfortably in bed. He is not complaining of too many symptoms today. Some shortness of breath. He still has some fluid overload. His urine output is low at 395 mL in the past 24 hours. I do believe this is more related to a prerenal issue due to cardiogenic shock. He is still in atrial fibrillation with rapid ventricular response. His liver function is getting better. BUN and creatinine about the same. He is still having multiorgan failure. OBJECTIVE: Vital Signs: Temperature 97 degrees, pulse 107, respiratory rate 16, blood pressure 85/67 with a MAP of 73, oxygen saturation 92 on 2 L of nasal cannula. HEENT: Head normocephalic. No trauma. PERRLA. Neck: Supple. No JVD. No masses. Central trachea. Chest: Coarse breath sounds bilaterally mostly at the bases with crepitus and rhonchi at the bases as well. Some crackles mostly on the right side. Abdomen: Soft, nontender, nondistended. No hepatosplenomegaly. Abdominal wall edema. Extremities: Two to 3+ lower extremity edema. No clubbing. No cyanosis. Neurological: Patient is awake. He does have generalized weakness. He is answering my questions. LABORATORY: WBC 12.1, hemoglobin 15.6, hematocrit 46.1, platelet 116,000. Sodium 130, potassium 4.3, chloride 98, bicarbonate 13. BUN 117, creatinine 3, glucose 117, calcium 7.8, phosphorus 5.3, bilirubin 1.3, AST 290, ALT 951, alkaline phosphatase 126. ProBNP 25,321. ASSESSMENT AND PLAN: 1. Shock, which I believe is probably a combination of cardiogenic shock and possible sepsis due to a respiratory infection. This patient has been recently treated with antibiotic and steroids as an outpatient. He has a severely reduced ejection fraction with global hypokinesis as well. Cardiology Department following this patient. I will continue with antibiotics. 2. Atrial fibrillation with rapid ventricular response. Continue with the same management. He seems to be more stable but still having rapid ventricular response with borderline low blood pressure, even though the MAP has been stable. 3. Acute kidney injury. Nephrology on board. Likely this is secondary to a prerenal issue due to cardiogenic shock. 4. Elevated liver function tests, getting better. This is likely due to shock liver. 5. Hyperkalemia, resolved. 6. Congestive heart failure with a new echocardiogram that showed an ejection fraction of 15% with global hypokinesis. We will try to continue with diuresis, but given his kidney dysfunction, he is not having too good urine output. 7. Leukocytosis. His blood culture showed gram-positive cocci so I will continue with linezolid and meropenem for now. 8. Bacteremia due to gram-positive cocci. I will wait for the final results. The patient still seems to be remarkably sick. No family members at the bedside at this moment, but I am not sure if they understand the whole situation. I do not think they believe this patient is really sick. I will try to have another conversation with them today. CRITICAL CARE TIME: 35 minutes. cc: Aroldo Alva MD
[2019-04-23] MEDS ORDERED: MERREM IV SCH (09:01)
[2019-04-23] MEDS ORDERED: NS IV SCH (09:01)
[2019-04-23] MEDS: LASIX IV SCH ×2 (09:57→20:00)
[2019-04-23] MEDS: MERREM 500 MG in NS 50 ML IV SCH (13:11)
[2019-04-23] MEDS ORDERED: B & O 16A SUPP PR PRN (14:03)
--- NOTE | 2019-04-23 14:27 | PROVIDER PROGRESS NOTE ---
Progress Note Subjective: He voices no uremic complaints and is acquiring about going home. Objective:temperature 96.3, pulse 117, respirations 19, blood pressure 83/57, 02 sat 93% on 2 L nasal cannula. General: chronically ill, white male lying in bed in no acute distress. HEENT: normocephalic, atraumatic, pupils equal and reactive. Conjunctiva pale. Mucous membranes dry. Skin: pale, dry with purple areas to his elbows and toes on bilaterally. Neck: supple, 6 cm JVD noted in upright position. Cardiovascular: S1, S2, tachycardic rate and irregular rhythm. No gallops. Respiratory: clear anteriorly Abdomen: soft, nontender, nondistended. Bowel sounds present. : non-inspected, Odonnell in place Extremities: 2+ pitting edema to BLE Neurological: alert, oriented to person, place, and time Labs: WBC 12.5, hemoglobin 15.6, hematocrit 46.1, platelet count 116, sodium 130, potassium 4.3, chloride 98, carbon dioxide 13, creatinine 3.0, phosphorus 5.3. Intake 1150, output 445. Impression: Acute kidney injury. Prerenal azotemia presumably from cardiogenic shock. He remains on cardizem drip with a heart rate in the 120s. Will talk with wire stretcher about possible cardioversion. Blood pressure. Low, PRN medication in place. Fluid volume. Slightly expanded. Remains on lasix. Anemia. Stable. Electrolytes. Stable. Anion gap acidosis. Slightly improved, observe. Medication review.
[2019-04-23] MEDS ORDERED: SAMSCA PO ONE (15:03)
--- NOTE | 2019-04-23 20:31 | CARDIOLOGY PROGRESS NOTE ---
DATE: 04/23/2019 SUBJECTIVE: Mr. Coombs reports that he feels better. His extremities seem warmer. PHYSICAL EXAMINATION: vital signs: Afebrile, heart rate is in the 70s. Since around 9:00 this morning, has consistently had heart rates below 100. His blood pressure is 84/54. His systolics appear to be predominantly in the 80s to 90s over the last several hours. His I's and O's are positive slightly at 1195. General: No acute distress. Cardiovascular: Irregularly irregular rate controlled rhythm. He has 1+ bilateral lower extremity edema, and warm and well perfused extremities. Chest: Coarse breath sounds diffusely. He has poor inspiratory effort. No increased work of breathing. He does appear on his chest x-ray to have improved aeration of the right lung base. Abdomen: Soft, nontender. PERTINENT DATA: His white count is 12. His hematocrit is 46. His platelet count is 116,000. His sodium is 130, potassium is 4.3, BUN is 117, creatinine is 3.0. His AST and ALT have significantly improved to 290 and 951 respectively. His proBNP is down to 25,000, from greater than 35,000. ASSESSMENT: Mr. Coombs is an 83-year-old gentleman who presents in cardiogenic shock as well as rapid atrial fibrillation, acute kidney injury, and shock liver. PLAN: He appears to be perfusing better as evidenced by his improvement in his liver studies. His renal function is relatively stable. His atrial fibrillation seems better controlled. I will give him a one-time dose of Samsca 15 mg today and recheck laboratories in the morning. cc: Ant Andersen MD
[2019-04-23] MEDS: LOPRESSOR IV PRN (22:35)
[2019-04-24] MEDS: LOPRESSOR IV PRN (02:17)
[2019-04-24] MEDS: MERREM 500 MG in NS 50 ML IV SCH (02:17)
[2019-04-24] MEDS: PRILOSEC PO SCH ×2 (06:24→20:32)
[2019-04-24] MEDS: ZYVOX 600 MG/D5W 600 MG/300 ML IVPB IV SCH (06:24)
[2019-04-24 06:35] LABS: EOS# 0.09 X1000 (0.0-0.7); EOS% 0.8 % (0.0-10.0); HEMATOCRIT 46.5 % (42.0-52.0); HEMOGLOBIN 15.4 g/dL (14.0-18.0); IMM GRAN# 0.02 X1000 (0.0-0.04); IMM GRAN% 0.2 % (0.0-0.5); LYMPH# 0.82 X1000 (1.2-3.4); LYMPH% 7.6 % (20.5-51.1); MCH 29.9 PG (27-31); MCHC 33.1 g/dL (33-37); MCV 90.3 FL (81-99); MONO% 7.4 % (1.7-9.3); MPV 10.9 FL (7.4-10.4); NEUT# 9.06 X1000 (1.4-6.5); PLT 120 X1000 (130-400); RBC 5.15 XMIL (4.7-6.1); WBC 10.79 X1000 (4.8-10.8)
--- NOTE | 2019-04-24 07:12 | Diag Imaging Result Doc PS360 ---
EXAM: CHEST-PORTABLE 04/24/2019 HISTORY: dyspnea TECHNIQUE: AP portable at 0534 COMMENT: There are bilateral pleural effusions. Some fluid is apparently loculated in the minor fissure. There is hazy interstitial pulmonary edema over both lung bases and there is atelectasis or pneumonia in the retrocardiac left lower lobe. These findings have not changed appreciably since 04/23/2019. IMPRESSION: Bilateral pleural effusions more so on the right than the left. Pulmonary edema. Left lower lobe atelectasis versus pneumonia. Electronically signed by Navin Chairez 04/24/2019 7:10 AM
[2019-04-24 07:19] LABS: ALBUMIN 2.9 g/dL (3.5-5.0); CALCIUM 7.9 mg/dL (8.8-10.2); CREATININE 2.7 mg/dL (0.7-1.2); MAGNESIUM 2.6 mg/dL (1.5-2.7); PHOSPHORUS 5.1 mg/dL (2.7-4.5); POTASSIUM 4.1 mmol/L (3.5-5.1); TOTAL BILIRUBIN 1.36 mg/dL (0.20-1.00); TOTAL PROTEIN 5.7 g/dL (6.3-8.3)
[2019-04-24] MEDS ORDERED: SAMSCA PO ONE (08:18)
[2019-04-24] MEDS: LOPRESSOR PO SCH ×3 (08:59→20:32)
[2019-04-24] MEDS: LASIX IV SCH ×2 (09:00→20:32)
--- NOTE | 2019-04-24 09:38 | PROGRESS NOTE ---
DATE: 04/24/2019 SUBJECTIVE: The patient is resting comfortably in bed. He is following commands. I will change the Odonnell catheter because he has been peeing around the Odonnell, so probably we need to put some put one that can fit better. Because of this, I do not have a really accurate urine output, but he seems to be perfusing better. OBJECTIVE: Vital Signs: Temperature 97.2 degrees, pulse 112, respiratory rate 21, blood pressure 126/73, oxygen saturation 98% on oxygen. HEENT: Head normocephalic, no trauma. PERRLA. Neck: Supple. No JVD. No masses. Central trachea. Chest: Coarse breath sounds bilaterally, mostly at the bases, with some crepitus at the bases as well and rhonchi, mostly on the right side. Abdomen: Soft, nontender, nondistended. No hepatosplenomegaly. Abdominal wall edema. Extremities: There is 2 to 3+ lower extremity edema. No clubbing. No cyanosis. Neurological: The patient is awake. He does have generalized weakness. He is answering my questions. LABORATORY: WBC 10.7, hemoglobin 15.4, hematocrit 46.5, platelets 120,000. Sodium 133, potassium 4.1, chloride 98, bicarbonate 21, BUN 111, creatinine 2.7, glucose 133, calcium 7.9, phosphorus 5.1, magnesium 2.6, total bilirubin 1.3, AST 222, ALT 777, alkaline phosphatase 132. ProBNP 24,808. Albumin 2.9. ASSESSMENT AND PLAN: 1. Shock. This is likely a combination of cardiogenic shock and septic shock due to left lower lobe pneumonia, urinary tract infection, and bacteremia. I have requested an evaluation by Infectious Disease Department even though his white blood cell count now is normal, but I need recommendations for further treatment. Cardiology Department also following this patient, and he seems to be perfusing better. 2. Atrial fibrillation with rapid ventricular response, continue with same management. Seems to be more stable. 3. Acute kidney injury. Nephrology Department following this patient closely. BUN and creatinine decreased a little bit compared with yesterday. I do not have an accurate urine output. 4. Elevated LFTs, likely due to shock liver. This is getting better as well. 5. Hyperkalemia, resolved. 6. Congestive heart failure with a new echocardiogram that showed an ejection fraction of 15% with global hypokinesis. We will continue trying diuresis on this patient. 7. Leukocytosis, multifactorial. This patient is bacteremic. He has a pneumonia in the left lower lobe, and he has a urinary tract infection, but the leukocyte count today is normal. 8. Bacteremia due to a Streptococcus sanguinis. I have requested a new blood culture today and an evaluation by the Infectious Disease Department. CRITICAL CARE TIME: 32 minutes. cc: Aroldo Alva MD
[2019-04-24] MEDS: LEVAQUIN PO SCH (11:43)
--- NOTE | 2019-04-24 14:10 | CARDIOLOGY PROGRESS NOTE ---
DATE: 04/24/2019 SUBJECTIVE: Mr. Coombs reports no issues today. He actually feels like he is doing a little bit better physically. OBJECTIVE: Vital Signs: He is afebrile. His heart rates have been in the 100s to low 120s. His blood pressure is 126/73. General: He is in no acute distress. Cardiovascular: He is in an irregularly irregular, slightly tachycardic rhythm. He has 2+ bilateral lower extremity edema on examination today. Lungs: His chest has coarse breath sounds diffusely. He has no increased work of breathing. Abdomen: Soft, nontender. PERTINENT DATA: His sodium is 133, potassium 4.1, BUN 111, creatinine 2.7, which are slightly improved. His proBNP is 24,808 which is essentially unchanged from yesterday. His albumin level is 2.9. ASSESSMENT: Mr. Coombs is an 83-year-old gentleman who presents with cardiogenic shock. Rapid atrial fibrillation. Possible sepsis as well. PLAN: Overall, he seems to be improving. His liver enzymes continue to trend in a positive direction. His BUN and creatinine appear slightly improved. His proBNP is improved from admission. We will add in a low dose of metoprolol 25 t.i.d. to try to achieve better rate control, and we will give him another 30 mg dose of Samsca to try to diurese the patient. We have some limited input and output data which would suggest a negative balance; however, there are a number of noncontinent voids not measured. cc: Ant Andersen MD
--- NOTE | 2019-04-24 15:20 | PROVIDER PROGRESS NOTE ---
Progress Note Subjective: he voices decreased appetite and general malaise. He denies any shortness of breath, chest pain, or nausea and vomiting. Objective:temperature 97.7, pulse 110, respiration 16, blood pressure 103/82, 02 sat 98% on 2 L nasal cannula. General: chronically ill, white male lying in bed in no acute distress. HEENT: normocephalic, atraumatic, pupils equal and reactive. Conjunctiva pale. Mucous membranes dry. Skin: dry with reddened areas to his elbows and toes on bilaterally. Flushed cheeks. Neck: supple, 6 cm JVD noted in upright position. Cardiovascular: S1, S2, tachycardic rate and irregular rhythm. No gallops. Respiratory: clear anteriorly Abdomen: soft, nontender, nondistended. Bowel sounds hypoactive. : non-inspected, Odonnell in place Extremities: 2+ pitting edema to BLE, improved from yesterday. Neurological: alert, oriented to person, place, and time Labs: WBC 10.79, hemoglobin 15.4, hematocrit 46.5, platelet count 120, sodium 133, potassium 4.1, chloride 98, carbon dioxide 21, BUN 111, creatinine 2.7, pro BNP 204 808, albumin 2.9. Impression: Acute kidney injury. Prerenal azotemia from cardiogenic shock. Creatinine improves to 2.7 today. Cardizem is still infusing at 5mg/hr with a heart rate in the 110-120s. . Blood pressure. Low, levophed in place if needed. Fluid volume. Slightly expanded. Remains on lasix. Anemia. Stable. Electrolytes. Stable. Acid base balance. Stable. Medication review. IV antibiotics discontinued. PO levaquin started. Lopressor scheduled.
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
--- NOTE | 2019-04-25 03:41 | Extremity Venous Study ---
PROCEDURE NAME: Venous U/S Bilateral Legs - 04/22/2019 REFERRING PHYSICIAN: SEAN Henry. INTERPRETING PHYSICIAN: Manpreet Bills MD. SENIOR PRIVATE CLIENT ADVISOR: Dheeraj. FINDINGS: The patient has edema in the legs. Bilateral lower extremity venous images accomplished. The common femoral, superficial femoral, deep femoral, popliteal, posterior tibial, peroneal, and greater saphenous are imaged bilaterally. Doppler is used to evaluate the veins for spontaneity, phasicity, respiratory excursion, distal augmentation. All veins are compressible. No intraluminal clot is seen. INTERPRETATION: No evidence of deep or superficial venous thrombosis in either lower extremity in the veins identified. cc: MD Arelis Blanchard PA
[2019-04-25 06:00] LABS: BASO# 0.05 X1000 (0.0-0.2); BASO% 0.5 % (0.0-0.8); EOS# 0.11 X1000 (0.0-0.7); EOS% 1.1 % (0.0-10.0); HEMATOCRIT 47.3 % (42.0-52.0); HEMOGLOBIN 15.5 g/dL (14.0-18.0); IMM GRAN# 0.04 X1000 (0.0-0.04); IMM GRAN% 0.4 % (0.0-0.5); LYMPH# 0.96 X1000 (1.2-3.4); LYMPH% 9.2 % (20.5-51.1); MCH 29.9 PG (27-31); MCHC 32.8 g/dL (33-37); MCV 91.3 FL (81-99); MONO# 1.05 X1000 (0.11-0.59); MONO% 10.1 % (1.7-9.3); NEUT# 8.19 X1000 (1.4-6.5); NEUT% 78.7 % (42.2-75.2); PLT 108 X1000 (130-400); RBC 5.18 XMIL (4.7-6.1)
[2019-04-25 06:26] LABS: INR 1.28; PROTIME 16.2 Seconds (11.0-16.0)
[2019-04-25] MEDS: PRILOSEC PO SCH ×2 (06:35→19:59)
[2019-04-25 06:37] LABS: ALBUMIN 2.9 g/dL (3.5-5.0); CREATININE 2.4 mg/dL (0.7-1.2); MAGNESIUM 2.4 mg/dL (1.5-2.7); PHOSPHORUS 4.2 mg/dL (2.7-4.5); POTASSIUM 3.8 mmol/L (3.5-5.1); TOTAL BILIRUBIN 1.31 mg/dL (0.20-1.00); TOTAL PROTEIN 5.9 g/dL (6.3-8.3)
[2019-04-25] MEDS: LOVENOX SUBQ SCH (08:41)
[2019-04-25] MEDS: LASIX IV SCH ×2 (08:41→19:59)
[2019-04-25] MEDS: LEVAQUIN PO SCH (08:43)
[2019-04-25] MEDS: LOPRESSOR PO SCH ×3 (08:43→19:59)
--- NOTE | 2019-04-25 09:27 | PROGRESS NOTE ---
DATE: 04/25/2019 SUBJECTIVE: Patient is resting comfortably in bed. He seems to be better. His urine output is significantly better, around 3.7 L. BUN and creatinine are improving. I will continue with the same management for now. His liver enzymes are getting better as well. OBJECTIVE: Vital Signs: Temperature 97 degrees, pulse 112, respiratory rate 23, blood pressure 99/78, oxygen saturation 93 on 2 L of nasal cannula. HEENT: Head normocephalic, no trauma. PERRLA. Neck: Supple. No JVD. No masses. Central trachea. Chest: Coarse breath sounds bilaterally, mostly at the bases with some crepitus at the bases as well as rhonchi, mostly on the right side. Abdomen: Soft, nontender, nondistended. No hepatosplenomegaly. Abdominal wall edema. Extremities: Two to 3+ lower extremity edema. No clubbing. No cyanosis. Neurological: The patient is awake. He is following commands. He does have generalized weakness. He is answering my questions. LABORATORY DATA: WBC 10, hemoglobin 15.5, hematocrit 47.3, platelets 108,000. Sodium 137, potassium 3.8, chloride 98, bicarbonate 25, BUN 99, creatinine 2.4, glucose 115, calcium 8. Magnesium 2.4, AST 175, ALT 574, alkaline phosphatase 127. Albumin 2.9. ASSESSMENT AND PLAN: 1. Shock, likely a combination of cardiogenic shock and septic shock due to left lower lobe pneumonia, urinary tract infection and bacteremia. We will continue with the same management. He seems to be getting better. 2. Atrial fibrillation with rapid ventricular response. Continue with same management. He seems to be more stable, rate controlled, is mostly in the 100s, 110s. 3. Acute kidney injury, getting better. Good urine output. Nephrology on board. 4. Elevated liver function tests, likely due to shock liver. Getting better. 5. Hyperkalemia, resolved. 6. Congestive heart failure with a new echocardiogram that showed an ejection fraction of 15% with global hypokinesis. Continue with diuretics. 7. Leukocytosis, multifactorial. This patient has bacteremia, pneumonia in the left lower lobe and urinary tract infection. 8. Bacteremia due to Streptococcus sanguineous. I have requested a new blood culture yesterday that so far has been negative. Infectious Disease Department already evaluated this patient. cc: Aroldo Alva MD
--- NOTE | 2019-04-25 14:17 | INFECTIOUS DISEASE PROGRESS NO ---
DATE: 04/25/2019 PRESENT ILLNESS: The patient has an Enterobacter urinary tract infection. He has 1 of 2 blood cultures a Streptococcus sanguinis, which could be a contaminant or a pathogen and finally, he has a possible left lower lobe pneumonia. MEDICATIONS: The patient is on Levaquin is by mouth. This is day 1 of treatment. PHYSICAL EXAMINATION: Vital Signs: Temperature is 97 degrees, pulse 112, respirations 23, blood pressure is 99/78. General: This is a chronically ill-appearing elderly male. Today he looks much better than he did yesterday. He is in no acute distress. Head/eyes/ears/nose/throat: He can hear my spoken words and see near objects. He does not have any white patches in his mouth. Neck: No pain with movement. Lungs: Clear to auscultation. Cardiovascular: Heart rate is irregular. Abdomen: Soft and nontender. Neurologic: The patient is awake. He can move his extremities. He can carry on a coherent conversation. Integument: No rash noted. LAB AND X-RAY: There is no x-ray report for today at this time. [place] [address], hemoglobin 15.5, and platelet count 108,000. Creatinine is 2.4. GFR is 26. Hepatitis panel is nonreactive. ASSESSMENT AND PLAN: As mentioned above the patient has an Enterobacter urinary tract infection. He may have a pneumonia. He has 1 of 2 blood cultures growing a Streptococcus sanguinis, which could be a contaminant or a pathogen. My plan is to continue with Levaquin for a total of 14 days. Day #1 of treatment will be the first day of treatment that the patient's blood cultures are negative. COMORBIDITIES: The patient is elderly. cc: Wilver Hinojosa MD
--- NOTE | 2019-04-25 18:06 | NEPHROLOGY PROGRESS NOTE ---
DATE: 04/25/2019 SUBJECTIVE: Mr. Coombs is sitting up in the bed. States he feels better. No shortness of breath. OBJECTIVE: Vital Signs: Blood pressure 97/58, heart rate 107, respiration 18. Afebrile. Intake 1.3 L. Output 3.7 L. General: No acute distress. Skin: Warm and dry. Pale. No cyanosis. Pupils are equal. Neck: Neck veins are not distended. Heart: Irregular and tachycardic. Lungs: Equal. No crackles. Abdomen: Soft, nontender. Bowel sounds present. Extremities: No edema, clubbing or cyanosis. IMPRESSION: Acute kidney injury secondary to cardiogenic shock. Creatinine is improving daily as his cardiac status is improving. Excellent urine output. Electrolytes/acid base in target. No changes. He is receiving furosemide 40 mg twice daily. His exam looks roughly euvolemic. Chest x-ray from yesterday with effusions and edema so we will continue this therapy. We will repeat chest x-ray tomorrow. cc: Aleks Albrecht MD
--- NOTE | 2019-04-25 18:50 | CARDIOLOGY PROGRESS NOTE ---
DATE: 04/25/2019 SUBJECTIVE: Mr. Coombs seems to be doing well today. He has no complaints. No breathing complaints. OBJECTIVE: Vital signs: He is afebrile. His heart rates have been anywhere from the low 100s to 120s. His blood pressure is 97/58. General: He is in no acute distress. Cardiovascular: He is in an irregularly irregular rhythm. Currently his rate is in the 90s during my examination. He continues to have 2+ bilateral lower extremity edema, but they are warm and well perfused. Chest exam: Seems to have basilar rales bilaterally. He has no increased work of breathing. Abdomen: Soft, nontender. PERTINENT DATA: We have no x-ray data today. His labs show a white count of 10.4. His hematocrit is 47. His platelet count is 108,000. His sodium is 137, potassium 3.8, BUN 99, creatinine 2.4, which has trended down from yesterday form 111 and 2.7. His AST and ALT continue to improve. His proBNP is greater than 35,000. ASSESSMENT: Mr. Coombs is an 83-year-old gentleman who presented with cardiogenic shock, atrial fibrillation. PLAN: We will continue to diurese him. He had a negative fluid balance over the last 24 hours. He is on currently IV diuretics b.i.d. He is on metoprolol, which seems to be doing a reasonable job of controlling his rate. We gave him one dose of Samsca yesterday, but his sodium today is normalized. Presently, I would continue on the current medications. 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 cc: Ant Andersen MD
[2019-04-26] MEDS: LOPRESSOR IV PRN (03:45)
[2019-04-26] MEDS: CARDIZEM 100 MG/NS 100 MG/100 ML IVPB IV SCH ×4 (05:00→23:48)
[2019-04-26] MEDS: PRILOSEC PO SCH ×2 (06:40→21:00)
[2019-04-26] MEDS: LEVAQUIN PO SCH (09:09)
[2019-04-26] MEDS: LOVENOX SUBQ SCH (09:09)
[2019-04-26] MEDS: LASIX IV SCH (09:09)
[2019-04-26] MEDS: LOPRESSOR PO SCH ×3 (09:10→21:00)
[2019-04-26 10:17] LABS: ALB/GLOB RATIO 0.9; ALBUMIN 2.6 g/dL (3.5-5.0); CREATININE 1.7 mg/dL (0.7-1.2); PHOSPHORUS 2.6 mg/dL (2.7-4.5); TOTAL BILIRUBIN 1.07 mg/dL (0.20-1.00); TOTAL PROTEIN 5.5 g/dL (6.3-8.3)
--- NOTE | 2019-04-26 11:10 | PROGRESS NOTE ---
DATE: 04/26/2019 SUBJECTIVE: Patient is resting comfortably in bed. He seems to be feeling better. Urine output is much better. He seems to be responding to the Lasix with a negative balance of 5.1 L, but he is still overloaded. I will continue with the same management for now. Pending lab work at this moment. OBJECTIVE: Vital Signs: Temperature 97.9, pulse 121, respiratory rate 23, blood pressure 111/64, oxygen saturation 96% on 3 L of nasal cannula. HEENT: Head normocephalic, no trauma. PERRLA. Neck: Supple. No JVD. No masses. Central trachea. Chest: Coarse breath sounds bilaterally, mostly at the bases, with some crepitus at the bases as well as rhonchi. The rhonchi are mostly at the right base. Abdomen: Soft, nontender, nondistended. No hepatosplenomegaly. Abdominal wall edema. Extremities: There is 2 to 3+ lower extremity edema. No clubbing. No cyanosis. Neurological: The patient is awake. He is following commands. He does have generalized weakness. He is answering my questions. LABORATORY: Pending lab work at this moment. ASSESSMENT AND PLAN: 1. Shock, likely a combination of cardiogenic shock and septic shock due to left lower lobe pneumonia, urinary tract infection and bacteremia. Continue with same management. Seems to be getting better. 2. Atrial fibrillation with rapid ventricular response. Continue with same management. He is still in atrial fibrillation. The rate is stable. 3. Acute kidney injury. This is getting better. He is having good urine output. He is responding to the Lasix. 4. Elevated liver function tests, likely due to shock liver. This is getting better. Pending lab work. 5. Hyperkalemia, resolved. 6. Congestive heart failure with a new echocardiogram that showed an ejection fraction of 15% with global hypokinesis. Continue with diuretics. 7. Leukocytosis, multifactorial. This patient has bacteremia, pneumonia in the left lower lobe, and urinary tract infection. Infectious Disease Department on board. 8. Bacteremia due to Streptococcus sanguinis. Infectious Disease on board. Continue with same management. 9. Overall, this patient seems to be getting better slowly. We will continue with same management. I will transfer this patient to the [facility] unit, will monitor. cc: Aroldo Alva MD
[2019-04-26] MEDS ORDERED: POTASSIUM PHOSPHATE 15 MMOL in NS 250 ML IV ONE (14:37)
--- NOTE | 2019-04-26 19:49 | NEPHROLOGY PROGRESS NOTE ---
DATE: 04/26/2019 SUBJECTIVE: He denies complaints. No shortness of breath, nausea or vomiting. Again asking about discharge. OBJECTIVE: Blood pressure 93/65, heart rate 47, respirations 15. Afebrile. Generally no acute distress. Skin is warm and dry. Neck veins are not appreciated. Heart is irregular but rate- controlled. Lungs are equal. No crackles. Abdomen benign.Extremities: Edema 2+. No cyanosis. IMPRESSION AND PLAN: Acute kidney injury. Cardiorenal syndrome. Creatinine 1.7 today, off of a high of 3.6 at admission. No specific intervention required. cc: Aleks Albrecht MD
--- NOTE | 2019-04-26 20:15 | PROGRESS NOTE ---
DATE: 04/26/2019 SUBJECTIVE: The patient denies chest discomfort or shortness of breath on supplemental oxygen per nasal cannula. He is still on intravenous Cardizem at 15 mg/hour. OBJECTIVE: Blood pressure 102/62, heart rate 95 and irregular with ECG monitor showing atrial fibrillation. Oxygen saturation 100% on nasal cannula oxygen.Neck: Jugular venous distention cannot be appreciated. Chest: Fairly clear to auscultation bilaterally. Cardiac Exam: Reveals an irregular rate and rhythm without appreciable murmur or gallop. Extremities: Demonstrate mild to moderate pretibial edema. LABORATORY DATA: Includes sodium 143, potassium 3.0, chloride 99, carbon dioxide 33, BUN 77, creatinine 1.7, glucose 162, albumin 2.6. IMPRESSION: 1. Acute on chronic systolic heart failure, improving with diuresis. 2. Nonischemic cardiomyopathy. 3. Atrial fibrillation. 4. Hypertension. 5. Chronic obstructive pulmonary disease. 6. Inconsistent medical compliance. RECOMMENDATIONS: 1. Continue diuresis with intravenous Lasix. 2. Increase metoprolol as tolerated to facilitate rate control and titration off of IV diltiazem. 3. Importance of compliance discussed with patient. 4. For now, continue Lovenox 80 mg subcutaneously daily given renal dysfunction. Ultimately, patient to transition back to oral anticoagulants. Appropriate dose to his renal function. cc: Robbin Box MD
[2019-04-27] MEDS: LOPRESSOR PO SCH ×4 (01:47→20:44)
[2019-04-27] MEDS: PRILOSEC PO SCH ×2 (06:11→20:44)
[2019-04-27 07:05] LABS: ALBUMIN 2.7 g/dL (3.5-5.0); CALCIUM 7.8 mg/dL (8.8-10.2); CREATININE 1.3 mg/dL (0.7-1.2); PHOSPHORUS 2.8 mg/dL (2.7-4.5); POTASSIUM 2.9 mmol/L (3.5-5.1)
--- NOTE | 2019-04-27 08:41 | PROGRESS NOTE ---
DATE: 04/27/2019 SUBJECTIVE: The patient is resting comfortably in bed. He is feeling better. His urine output has been stable, and the kidney function is getting better as well. We have a negative balance so far of 6.1 L during this hospitalization. I will replace his electrolytes, especially potassium. He will receive a dose of potassium today in the morning and also in the afternoon. I will monitor this patient closely. He seems to be doing much better. OBJECTIVE: Vital Signs: Temperature 97.8 degrees, pulse 83, respiratory rate 14, blood pressure 101/73, oxygen saturation 98 on 3 L of nasal cannula. HEENT: Head normocephalic. No trauma. PERRLA. Neck: Supple. No JVD. No masses. Central trachea. Chest: Coarse breath sounds bilaterally, mostly at the bases, with some crepitus at the bases as well as rhonchi. The rhonchi is mostly on the right base. Abdomen: Soft, nontender, nondistended. No hepatosplenomegaly. Abdominal wall edema, which is much better. Extremities: There is 2+ lower extremity edema. No clubbing. No cyanosis. Neurological: The patient is awake, alert. He is following commands. He is answering my questions. He does have generalized weakness. LABORATORY DATA: Sodium 145, potassium 2.9, chloride 100, bicarbonate 34, BUN 60, creatinine 1.3, glucose 152, calcium 7.8. Phosphorus 2.8. Albumin 2.7. ASSESSMENT AND PLAN: 1. Shock, likely a combination of cardiogenic shock and septic shock due to left lower lobe pneumonia, urinary tract infection, and bacteremia. Continue with the same management. Seems to be getting better. 2. Atrial fibrillation with rapid ventricular response. Continue with the same management per Cardiology Department. 3. Acute kidney injury. This is getting better. He is having good urine output. He is responding to Lasix. 4. Elevated liver function tests, likely due to shock liver, getting better. 5. Hyperkalemia, resolved. 6. Congestive heart failure with a new echocardiogram that showed an ejection fraction of 15% with global hypokinesis. Continue with diuretics and treatment. 7. Leukocytosis, multifactorial due to bacteremia, pneumonia, urinary tract infection. Infectious Disease on board. The white blood cell count normalized. 8. Bacteremia due to Streptococcus sanguinis. Infectious Disease on board. Continue with the same management. 9. Left lower lobe pneumonia. Continue with antibiotics. Overall, this patient seems to be getting better. He is still on the Cardizem drip, antibiotics, anticoagulation. He is getting physical therapy and occupational therapy as well. He seems to be more stable. I will ask for new lab work tomorrow to see how he does. I will replace the electrolytes. cc: Aroldo Alva MD
[2019-04-27] MEDS: LASIX IV SCH (08:43)
[2019-04-27] MEDS: LOVENOX SUBQ SCH (08:43)
[2019-04-27] MEDS: LEVAQUIN PO SCH (08:43)
[2019-04-27] MEDS: KLOR-CON PO SCH ×2 (08:43→20:44)
[2019-04-27] MEDS: CARDIZEM 100 MG/NS 100 MG/100 ML IVPB IV SCH (08:44)
--- NOTE | 2019-04-27 16:02 | INFECTIOUS DISEASE PROGRESS NO ---
DATE: 04/27/2019 PRESENT ILLNESS: The patient has an Enterobacter urinary tract infection and 1 of 2 blood cultures positive for Streptococcus sanguinis. The patient also has a left lower lobe pneumonia. MEDICATIONS: This is day 3 of treatment with Levaquin with day 1 being the first day that the patient's repeat blood cultures were sterile. PHYSICAL EXAMINATION: Vital Signs: Temperature is 97.8 degrees, pulse respirations 14, blood pressure 101/73. General: This is a chronically ill-appearing elderly male. He is in no acute distress and has been sitting up in his in his bed and he also has been caring on coherent conversations. Head/eyes/ears/nose/throat: He can hear my spoken words and see near objects. He does not have any white coating of his tongue. Neck: No pain with movement. Lungs: Clear to auscultation. Cardiovascular: Heart rate is irregular. Abdomen: Soft and nontender. Neurologic: As mentioned above the patient is awake. He has been sitting up in his bed. He can move his extremities. He talks in a coherent fashion. LAB AND X-RAY: There is no new radiographic study done today. The patient's creatinine is 1.3, GFR is 53. Procalcitonin is 0.87. The patient's blood cultures drawn on April 24 are negative. ASSESSMENT AND PLAN: The patient has Enterobacter urinary tract infection and Streptococcus sanguinis bacteremia and a pneumonia. My plan is to continue Levaquin. This is day 3 of treatment with it and the plan is to continue Levaquin for a total of 14 days with day 1 being the first day that the patient's blood cultures were negative, which was on April 24. For tomorrow I have ordered a CBC, a BMP, and a chest x-ray. COMORBIDITIES: The patient is elderly. cc: Wilver Hinojosa MD
[2019-04-27] MEDS: LOPRESSOR IV PRN (23:13)
[2019-04-28] MEDS: LOPRESSOR PO SCH ×5 (01:33→20:23)
[2019-04-28] MEDS ORDERED: LOPRESSOR PO ONE (02:07)
[2019-04-28] MEDS: PRILOSEC PO SCH ×2 (06:12→20:23)
[2019-04-28 06:41] LABS: BASO# 0.02 X1000 (0.0-0.2); BASO% 0.2 % (0.0-0.8); EOS# 0.14 X1000 (0.0-0.7); EOS% 1.3 % (0.0-10.0); HEMATOCRIT 46.9 % (42.0-52.0); HEMOGLOBIN 14.7 g/dL (14.0-18.0); IMM GRAN# 0.02 X1000 (0.0-0.04); IMM GRAN% 0.2 % (0.0-0.5); LYMPH# 1.21 X1000 (1.2-3.4); LYMPH% 11.2 % (20.5-51.1); MCH 29.8 PG (27-31); MCHC 31.3 g/dL (33-37); MCV 95.1 FL (81-99); MONO# 1.06 X1000 (0.11-0.59); MONO% 9.8 % (1.7-9.3); MPV 10.6 FL (7.4-10.4); NEUT# 8.34 X1000 (1.4-6.5); NEUT% 77.3 % (42.2-75.2); PLT 92 X1000 (130-400); RBC 4.93 XMIL (4.7-6.1); RDW 15.5 % (11.5-14.5); WBC 10.79 X1000 (4.8-10.8)
[2019-04-28 06:51] LABS: MAGNESIUM 1.6 mg/dL (1.5-2.7); PHOSPHORUS 2.2 mg/dL (2.7-4.5)
[2019-04-28 07:05] LABS: ALB/GLOB RATIO 0.9; ALBUMIN 2.7 g/dL (3.5-5.0); CALCIUM 8.3 mg/dL (8.8-10.2); CREATININE 1.3 mg/dL (0.7-1.2); TOTAL BILIRUBIN 0.85 mg/dL (0.20-1.00); TOTAL PROTEIN 5.6 g/dL (6.3-8.3)
[2019-04-28] MEDS: CARDIZEM 100 MG/NS 100 MG/100 ML IVPB IV SCH ×2 (07:57→17:17)
--- NOTE | 2019-04-28 08:00 | Diag Imaging Result Doc PS360 ---
EXAM: CHEST-1 VIEW INDICATION: pneumonia TECHNIQUE: One view COMPARISON: 04/24/2019 FINDINGS: The right pleural effusion has decreased in size. The left smaller pleural effusion appears to be approximately stable. The retrocardiac consolidation on the left is stable. There is a consolidation in the right perihilar region that is less dense than the previous study. Pulmonary edema appears to have marginally improved. Cardiac silhouette is stable. IMPRESSION: Overall slight improvement. Electronically signed by Henri Murguia 04/28/2019 7:58 AM
[2019-04-28] MEDS: LASIX IV SCH (08:20)
[2019-04-28] MEDS: LEVAQUIN PO SCH (08:20)
[2019-04-28] MEDS: LOVENOX SUBQ SCH ×2 (08:20→20:23)
[2019-04-28] MEDS: KLOR-CON PO SCH ×2 (08:20→20:23)
--- NOTE | 2019-04-28 08:20 | PROGRESS NOTE ---
DATE: 04/28/2019 SUBJECTIVE: This patient is resting comfortably in bed. He is in atrial fibrillation, rapid ventricular response; the heart rate has been in the 120s 140s, so I will put him back on Cardizem drip. I will wait for Cardiology re-evaluation and recommendations. OBJECTIVE: Vital Signs: Temperature 97.7 degrees, pulse 66, respiratory rate 17, blood pressure 110/83, oxygen saturation 98 on 3 L of nasal cannula. These vital signs are from 4 a.m. At this moment his heart rate on the monitor is around 144. HEENT: Head normocephalic, no trauma. PERRLA. Neck: Supple. No JVD. No masses. Central trachea. Chest: Coarse breath sounds bilaterally mostly at the bases with some crepitus at the bases, as well as rhonchi mostly on the right base. Cardiovascular: Irregularly irregular rate and rhythm, tachycardic. Abdomen: Soft, nontender, nondistended. No hepatosplenomegaly. Abdominal wall edema which is much better. Extremities: Total of 1+ to 2+ lower extremity edema. No clubbing. No cyanosis. Neurological examination: The patient is awake, alert. He is following commands. He is answering my questions. LABORATORY: WBC 10.7, hemoglobin 14.7, hematocrit 46.9, platelet count 92. Sodium 145, potassium 4, chloride 100, bicarbonate 36. BUN 44, creatinine 1.3, glucose 142, calcium 8.3, phosphorus 2.2. Total bilirubin 0.85, AST 45, ALT 200, alkaline phosphatase 89, albumin 2.7. ASSESSMENT AND PLAN: 1. Shock, likely a combination of cardiogenic shock and septic shock due to left lower lobe pneumonia, urinary tract infection and bacteremia. Continue with same management. Seems to be getting better. 2. Atrial fibrillation with rapid ventricular response. Continue with Cardizem drip. Cardiology on board. 3. Acute kidney injury. This is getting better. He is having good urine output. He is responding to the Lasix treatment. 4. Elevated liver function tests, likely due to shock liver, getting better. 5. Hyperkalemia, resolved. 6. Congestive heart failure with a new echocardiogram that showed an ejection fraction of 15% with global hypokinesis. Continue with diuretics and treatment. 7. Leukocytosis, multifactorial due to bacteremia, pneumonia, urinary tract infection. Infectious Disease Department on board. White blood cell count normalized. 8. Bacteremia due to Streptococcus sanguineous. Infectious Disease Department on board. Continue with same management. 9. Left lower lobe pneumonia, aware. Continue with same treatment. The patient seems to be getting better. He is still having episodes of atrial fibrillation RVR. I will put this patient on the Cardizem drip. I will wait for Cardiology Department reevaluation. He seems to be getting better. I will continue working with physical therapy and occupational therapy. He is weak as well. cc: Aroldo Alva MD
[2019-04-28] MEDS ORDERED: MAGNESIUM SULFATE 2 GM/S.W.I. 2 GM/50 ML IVPB IV ONE (13:26)
[2019-04-28] MEDS ORDERED: LANOXIN IV ONE (13:27)
--- NOTE | 2019-04-28 14:54 | INFECTIOUS DISEASE PROGRESS NO ---
DATE: 04/28/2019 PRESENT ILLNESS: The patient is being treated for an enterococcal urinary tract infection, a streptococcal bacteremia, and a pneumonia. MEDICATIONS: This is day 5 of treatment with Levaquin with day 1 being the first day that the patient's repeat blood cultures were sterile. PHYSICAL EXAMINATION: Vital Signs: Temperature is 98 degrees, pulse 104, respirations 21, blood pressure 102/74. General: This is a chronically ill-appearing, elderly male. He is in no acute distress. Head, Eyes, Ears, Nose, and Throat: He can hear my spoken words and see near objects. I did not see any white patches in his mouth. Neck: No pain with movement. Lungs: Clear to auscultation. Cardiovascular: Heart rate is irregular. Abdomen: Soft and not tender. Neurologic: The patient is awake. He can move his extremities but he is weak. LAB AND X-RAY: The chest x-ray shows improvement in the patient's pulmonary edema and right lung consolidation. Procalcitonin is 0.87, which means the patient is very likely to have pneumonia. The patient's CBC shows a white count of 10,790, hemoglobin 14.7, and platelet count is 92,000. Creatinine is 1.3. GFR is 53. ALT is 200. ASSESSMENT AND PLAN: The patient has an Enterobacter urinary tract infection, a streptococcal bacteremia, and pneumonia. My plan is to continue Levaquin for a total of 14 days with the first day of treatment being the first day that the patient's repeat blood cultures were sterile. COMORBIDITIES: The patient is elderly. cc: Wilver Hinojosa MD
--- NOTE | 2019-04-28 15:13 | CARDIOLOGY PROGRESS NOTE ---
DATE: 04/28/2019 SUBJECTIVE: The patient reports he feels better. He has no palpitations. His breathing has continued to improve during the course of the hospitalization. PHYSICAL EXAMINATION: Afebrile, heart rate 104. His heart rates continue to be widely fluctuant, anywhere from documentations in the 40s all the way up to 130s over the last 48 hours. His Is and Os continue to be negative. His total Is and Os are -6.6 L for the hospitalization. General: Elderly, white male. No acute distress. Cardiovascular: He is in an irregularly irregular rhythm. He has no murmurs. He has no S3. He has 1+ bilateral lower extremity edema. Chest: Examination is clear bilaterally. He has no increased work of breathing. His abdomen is soft, nontender. PERTINENT DATA: His hematocrit is 46, his platelet count is 92,000. His sodium is 145, potassium is 4, BUN 44, creatinine is 1.3. His AST and ALT continue to improve. Albumin is 2.7. His magnesium level is 1.6. ASSESSMENT: Mr. Coombs is an 83-year-old gentleman who presented in congestive heart failure with rapid atrial fibrillation. PLAN: At this point, we have repleted his magnesium. We will try to initiate him on digoxin with 250 mg IV now and 125 daily after that. We will continue him on the metoprolol. We will continue to diurese him. Recheck laboratories including a proBNP tomorrow. We may consider performing a DC cardioversion in the near future but given the patient's continued fluid overload, continued liver issues, and recently recovered renal failure, I would prefer rate control presently rather than subjecting him to the stress of a GISELLE cardioversion. Recheck laboratories in the morning, as well as an EKG. cc: Ant Andersen MD
[2019-04-29] MEDS: LOPRESSOR PO SCH ×4 (02:36→20:17)
[2019-04-29] MEDS: CARDIZEM 100 MG/NS 100 MG/100 ML IVPB IV SCH ×2 (03:09→12:44)
[2019-04-29] MEDS: PRILOSEC PO SCH ×2 (06:21→20:17)
[2019-04-29 06:45] LABS: AGAP 9; BUN 35 mg/dL (8-22); CALCIUM 8.4 mg/dL (8.8-10.2); CHLORIDE 102 mmol/L (98-107); COSMO 298; CREATININE 0.9 mg/dL (0.7-1.2); ESTIMATED GFR > 60; GLUCOSE 124 mg/dL (70-104); MAGNESIUM 1.9 mg/dL (1.5-2.7); POTASSIUM 4.2 mmol/L (3.5-5.1); SODIUM 145 mmol/L (136-145); TCO2 34 mmol/L (25-35)
--- NOTE | 2019-04-29 07:42 | EKG Report ---
Test Performed on : 04/29/2019 07:05:43 AM Test Reason : afib Blood Pressure : / mmHG Vent. Rate : 084 BPM Atrial Rate : 069 BPM P-R Int : 000 ms QRS Dur : 098 ms QT Int : 354 ms P-R-T Axes : 000 -53 166 degrees QTc Int : 418 ms Atrial fibrillation. Left anterior fascicular block ST & T wave abnormality, consider anterolateral ischemia Abnormal ECG When compared with ECG of 22-APR-2019 13:26, Vent. rate has decreased BY 52 BPM Questionable change in QRS axis Nonspecific T wave abnormality, worse in Inferior leads T wave inversion now evident in Anterior leads Confirmed by Raulito SCHULTE, Vargas Naik ([id number]) on 05/01/2019 7:28:41 AM
[2019-04-29] MEDS: LEVAQUIN PO SCH (08:53)
[2019-04-29] MEDS: LANOXIN PO SCH (08:53)
[2019-04-29] MEDS: LASIX IV SCH ×2 (08:53→20:17)
[2019-04-29] MEDS: LOVENOX SUBQ SCH ×2 (08:54→20:17)
[2019-04-29] MEDS ORDERED: LEVAQUIN PO ONE (10:30)
--- NOTE | 2019-04-29 10:44 | PROGRESS NOTE ---
DATE: 04/29/2019 SUBJECTIVE: The patient reports not feeling good overall. He said that he reports general malaise. Denies any chest pain, any chest pressure. OBJECTIVE: Vital Signs: Temperature 97.5 degrees, heart rate 92, respiratory rate 19, blood pressure 102/76, O2 saturation 98% on 3 L nasal cannula. General: This is a chronically ill- appearing, 83-year-old, male, lying in bed in no acute distress. Cardiovascular: Irregularly irregular heart rhythm. Tachycardic, but no murmurs, gallops, or rubs noted. Respiratory: Coarse breath sounds still noted in both pulmonary bases. Crackles in both bases. The patient is not using any accessory muscles or having work of breathing. Abdomen: Soft, nontender to palpation. Bowel sounds present. No organomegaly. Extremities: There is 2+ pitting edema in both lower extremities. Peripheral pulses are present in both legs. Neurological: The patient is awake, alert, follows commands, answer questions appropriately. Moves all 4 extremities. LABORATORY DATA: White cell count 10.79, hemoglobin 14.7, hematocrit 46.9, platelets 92,000. Normal BMP. Phosphorus 2.0, magnesium 1.9. ASSESSMENT AND PLAN: 1. Shock, likely a combination of cardiogenic shock and septic shock due to left lower lobe pneumonia, urinary tract infection, and bacteremia. Clinically, this patient is doing fine, not requiring any vasopressors. The patient is being treated for pneumonia with levofloxacin that initially was 250 mg by mouth daily considering his abnormal creatinine, but now will increase the doses to 750 mg by mouth daily. 2. Atrial fibrillation with rapid ventricular rate. The patient has been placed on Cardizem drip yesterday, but that medication has been stopped, and will continue with digoxin. Will continue with metoprolol. Heart rate is under control. Cardiology is following this patient. 3. Acute kidney injury, completely resolved. 4. Elevated liver function tests, likely due to shock liver. Transaminase has been checked today, but yesterday were much better. 5. Congestive heart failure. The patient has ejection fraction of 15% according to last echocardiogram. His proBNP is still pretty much elevated at 28,000. The patient is being diuresed. Will continue with the same management. 6. Bacteremia due to Streptococcus sanguinis. Dr. Hinojosa from Infectious Diseases is following this patient. 7. Left lower lobe pneumonia. Will continue with current management. 8. Disposition. At this point, will follow the lead from Cardiology. cc: Bert Lopez MD
--- NOTE | 2019-04-29 11:27 | INFECTIOUS DISEASE PROGRESS NO ---
DATE: 04/29/2019 PRESENT ILLNESS: The patient is being treated for a streptococcal bacteremia and pneumonia, and also for an enterococcal urinary tract infection. MEDICATIONS: This is the sixth day of treatment with Levaquin. PHYSICAL EXAMINATION: Vital Signs: Temperature is 97.5 degrees, pulse 92, respirations 19, blood pressure 102/76. General: This is a chronically ill-appearing, elderly male. He is in no acute distress. HEENT: He can hear my spoken words and see near objects. He does not have any white patches in his mouth. There is no drainage from his nose or ears. Neck: No pain with movement. Lungs: Clear to auscultation. Cardiovascular: Heart rate is irregular. Abdomen: Soft and nontender. Neurologic: The patient is alert. He has been sitting up, and he took a few steps yesterday, but in general, he is weak. IMAGING AND LABORATORY DATA: The patient's only lab for today was a creatinine which is 0.9, with a GFR of greater than 60. There is no radiographic study for today. ASSESSMENT AND PLAN: The patient has an Enterobacter urinary tract infection and a streptococcal bacteremia and pneumonia. My plan is to treat the patient with Levaquin for a total of 14 days, with the first day of treatment being the first day that the patient's repeat blood cultures were sterile. COMORBIDITIES: The patient is elderly. cc: Wilver Hinojosa MD
[2019-04-29] MEDS: PRIMACOR 20 MG/D5W 100 ML 20 MG/100 ML IVPB IV SCH (16:52)
[2019-04-30] MEDS: PRIMACOR 20 MG/D5W 100 ML 20 MG/100 ML IVPB IV SCH ×4 (02:55→15:56)
[2019-04-30] MEDS: CARDIZEM 100 MG/NS 100 MG/100 ML IVPB IV SCH ×3 (02:56→20:20)
[2019-04-30] MEDS: LOPRESSOR PO SCH ×4 (02:56→20:10)
[2019-04-30] MEDS: PRILOSEC PO SCH ×2 (06:02→20:10)
--- NOTE | 2019-04-30 06:46 | PROGRESS NOTE ---
DATE: 04/30/2019 SUBJECTIVE: Patient reports feeling better and breathing better today. Denies any chest pain, chest pressure, or shortness of breath at rest. OBJECTIVE: Vital Signs: Temperature 96.9, heart rate 122, respiratory rate 20, blood pressure 93/63, and O2 saturation 92% 3 L nasal cannula. General: This is a chronically ill-appearing 83- year-old male lying in bed in no acute distress. Cardiovascular: Irregularly irregular heart rhythm. Tachycardic but no murmurs, gallops, or rubs noted. Respiratory: Breath sounds still noted in both pulmonary bases. Patient not using any accessory muscles or having work of breathing. Abdomen: Soft. Nontender to palpation. Bowel sounds present. No organomegaly. Extremities: 2+ pitting edema in both lower extremities. Peripheral pulses present in both legs. Neurological: The patient is alert and oriented x3. Moves all 4 extremities. LABORATORY DATA: Pending at the time of my dictation. ASSESSMENT/PLAN: 1. Shock at presentation likely secondary to combination of cardiogenic shock and septic shock due to left lower lobe pneumonia, urinary tract infection, and bacteremia. Clinically, this patient is feeling better although blood pressure reading is ranging between 90 and 100 systolic blood pressure. Patient is being treated with Levaquin by Dr. Hinojosa infectious disease. We have increased that dose to 750 considering that his renal function is completely back to normal. They are planning to treat it with this medication for 14 days considering that day #1 is the day that the blood culture is negative. That is 04/24 so today is day #6 of treatment. 2. Atrial fibrillation with rapid ventricular response. Patient is on digoxin and Toprol. Apparently, heart rate is well controlled although sometimes he reaches 100 and 120's. We will continue to monitor. Cardiology following this patient. 3. Acute kidney injury. Completely resolved. 4. Elevated liver function tests likely due to shock liver. We will check CMP today. We will continue to monitor. 5. Congestive heart failure. The patient has chronic condition with ejection fraction of 15%. At this point, we will continue diuresis. From the day before yesterday, his proBNP was elevated. We will continue to monitor. 6. Bacteremia due to Streptococcus sanguinous. Dr. Hinojosa following this patient. 7. Left lower lobe pneumonia. We will continue with current antibiotic management. 8. Disposition. We will continue to monitor this patient closely and following leads from Cardiology. cc: Bert Lopez MD
[2019-04-30 07:04] LABS: BASO# 0.03 X1000 (0.0-0.2); BASO% 0.4 % (0.0-0.8); EOS# 0.13 X1000 (0.0-0.7); EOS% 1.7 % (0.0-10.0); HEMATOCRIT 45.9 % (42.0-52.0); HEMOGLOBIN 14.4 g/dL (14.0-18.0); IMM GRAN# 0.03 X1000 (0.0-0.04); IMM GRAN% 0.4 % (0.0-0.5); LYMPH# 0.87 X1000 (1.2-3.4); LYMPH% 11.4 % (20.5-51.1); MCH 29.7 PG (27-31); MCHC 31.4 g/dL (33-37); MCV 94.6 FL (81-99); MONO# 0.84 X1000 (0.11-0.59); MPV 10.6 FL (7.4-10.4); NEUT# 5.74 X1000 (1.4-6.5); NEUT% 75.1 % (42.2-75.2); PLT 90 X1000 (130-400); RBC 4.85 XMIL (4.7-6.1); RDW 15.4 % (11.5-14.5); WBC 7.64 X1000 (4.8-10.8)
[2019-04-30 07:45] LABS: AGAP 8; ALBUMIN 2.5 g/dL (3.5-5.0); BUN 30 mg/dL (8-22); CALCIUM 8.1 mg/dL (8.8-10.2); CHLORIDE 98 mmol/L (98-107); COSMO 292; ESTIMATED GFR > 60; GLUCOSE 113 mg/dL (70-104); PHOSPHORUS 1.1 mg/dL (2.7-4.5); POTASSIUM 3.4 mmol/L (3.5-5.1); SODIUM 143 mmol/L (136-145); TCO2 37 mmol/L (25-35)
[2019-04-30 08:14] LABS: ALB/GLOB RATIO 1.2; ALBUMIN 2.5 g/dL (3.5-5.0); DIRECT BILIRUBIN 0.3 mg/dL (0.00-0.20); TOTAL BILIRUBIN 0.75 mg/dL (0.20-1.00); TOTAL PROTEIN 4.6 g/dL (6.3-8.3)
[2019-04-30] MEDS: LOVENOX SUBQ SCH ×2 (08:27→20:10)
[2019-04-30] MEDS: LEVAQUIN PO SCH (08:27)
[2019-04-30] MEDS: LANOXIN PO SCH (08:27)
[2019-04-30] MEDS: LASIX IV SCH ×2 (08:27→20:10)
--- NOTE | 2019-04-30 09:31 | INFECTIOUS DISEASE PROGRESS NO ---
DATE: 04/30/2019 PRESENT ILLNESS: The patient is being treated for streptococcal bacteremia and pneumonia, and an Enterobacter urinary tract infection. MEDICATIONS: This is the 7th day of treatment with Levaquin. PHYSICAL EXAMINATION: Vital Signs: Temperature is 97.9 degrees, pulse 125, respirations 17, blood pressure is 110/58. General: This is a chronically ill-appearing elderly male. He is in no acute distress. He does look much better than he did a few days ago, however. Head/Eyes/Ears/Nose/Throat: He can hear my spoken words and see near objects. He does not have any white coating of his tongue. Neck: No pain with movement. Lungs: Clear to auscultation. Cardiovascular: Heart rate is irregular. Abdomen: Soft and nontender. Neurologic: The patient is alert. He yesterday sat up and took a few steps, but in general, he is very weak. LABORATORY AND RADIOLOGY: There is no new radiographic study. The patient's CBC shows a white count of 7640, hemoglobin 14.4, and platelet count 90,000. Creatinine is 1. GFR is greater than 60. ALT is 98. ASSESSMENT AND PLAN: The patient has an Enterobacter urinary tract infection and a streptococcal bacteremia and pneumonia. This is the 7th day of treatment with Levaquin, and I plan for another 7 days to complete a 14-day treatment course. COMORBIDITIES: The patient is elderly. cc: Wilver Hinojosa MD MTD
[2019-04-30] MEDS ORDERED: POTASSIUM CHLORIDE 20% LIQUID PO ONE (13:40)
--- NOTE | 2019-04-30 14:15 | CARDIOLOGY PROGRESS NOTE ---
DATE: 04/30/2019 SUBJECTIVE: Mr. Coombs reports he is doing well today. He has no pain complaints. OBJECTIVE: Afebrile. His heart rates have been in the 100s to 120s. His I's and O's are difficult to track secondary to a number of noncontinent voids. His catheter is leaking.Cardiovascular: He is in an irregularly irregular, mildly tachycardic rhythm. He has no murmurs. He has 2+ bilateral lower extremity edema and warm and well perfused extremities. Chest: His chest exam sounds clear. He has poor inspiratory effort. Abdomen: His abdomen is soft, nontender. PERTINENT DATA: Sodium is 143, potassium 3.4, BUN 30, creatinine is 1. His albumin today is 2.5. His AST and ALT are 26 and 98 respectively. ASSESSMENT: Mr. Coombs is an 83-year-old gentleman who presented with cardiogenic shock possibly tachycardia induced. PLAN: We will continue him on milrinone for the time being. I will replete his potassium. I will give him some albumin today, continue to try to diurese him with inotrope on board. Perhaps tomorrow we will discontinue the Milrinone and possibly start him on amiodarone if his liver function continues to be stable. We would then consider GISELLE cardioversion on Sunday to hopefully achieve sinus rhythm and possible continued assistance with diuresis. His renal function appears to be markedly improved. cc: Ant Andersen MD
[2019-04-30] MEDS: ALBUMIN 25% IV SCH ×2 (14:21→15:44)
[2019-04-30] MEDS ORDERED: CALMOSEPTINE OINTMENT TOP PRN (15:40)
[2019-05-01] MEDS: PRIMACOR 20 MG/D5W 100 ML 20 MG/100 ML IVPB IV SCH ×2 (02:25→15:05)
[2019-05-01] MEDS: LOPRESSOR PO SCH ×4 (02:26→20:37)
[2019-05-01] MEDS: CARDIZEM 100 MG/NS 100 MG/100 ML IVPB IV SCH ×2 (06:08→15:04)
[2019-05-01] MEDS: PRILOSEC PO SCH ×2 (06:10→20:37)
[2019-05-01 06:44] LABS: AGAP 8; BUN 25 mg/dL (8-22); CALCIUM 8.5 mg/dL (8.8-10.2); CHLORIDE 99 mmol/L (98-107); COSMO 286; ESTIMATED GFR > 60; GLUCOSE 110 mg/dL (70-104); PHOSPHORUS 1.6 mg/dL (2.7-4.5); POTASSIUM 3.9 mmol/L (3.5-5.1); SODIUM 141 mmol/L (136-145); TCO2 34 mmol/L (25-35)
--- NOTE | 2019-05-01 06:50 | PROGRESS NOTE ---
DATE: 05/01/2019 SUBJECTIVE: Patient reports breathing not well. No complaints at this time as per nursing staff. The patient was requiring more oxygen. He was saturating 85 on 5 L by nasal cannula. So now he is requiring Ventimask. Now, he is feeling okay. OBJECTIVE: Vital Signs: Temperature 98.5 degrees, heart rate 113, respiratory rate 20, blood pressure 104/79, O2 saturation 95% on Venturi mask. General Examination: A chronically ill- appearing, 83-year-old male, lying in bed, in no acute distress. Cardiovascular: Irregularly irregular heart rhythm. Tachycardic but no murmurs, gallops, or rubs noted. Respiratory: Crackles still noted in both pulmonary bases. Patient not using any accessory muscles or having work of breathing. Abdomen: Soft, nontender to palpation. Bowel sounds present. No organomegaly. Extremities: 2+ pitting edema noted still in both lower extremities. Peripheral pulses present in both legs. Neurological: The patient is alert, oriented x3. Moves 4 extremities. LABORATORY DATA: Pending at the time of this dictation. ASSESSMENT AND PLAN: 1. Shock on presentation, likely secondary to combination of cardiogenic shock, septic shock, left lower lobe pneumonia, urinary tract infection, bacteremia. This patient is still sick. Now he is on Primacor as per Cardiology recommendations. Also, he continues to be on amiodarone and Cardizem drip. At this point, we will continue with the same management. 2. Atrial fibrillation with rapid ventricular rate. As we mentioned before, he is on Cardizem drip, digoxin and Toprol. According to patient Cardiology is planning to do cardioversion. We will continue to follow recommendations from Cardiology. 3. Acute kidney injury. Completely resolved. 4. Bacteremia due to Streptococcus mitis. Will continue with Levaquin 750 mg, today is #8 of treatment .they will complete 14 days of antibiotics total. 5. Left lower lobe pneumonia. We will continue with current antibiotic management. 6. Disposition. We will continue to monitor this patient closely and following with Cardiology. cc: MD JOHNNY Lewis
[2019-05-01 06:51] LABS: ALB/GLOB RATIO 1.8; ALBUMIN 3.2 g/dL (3.5-5.0); DIRECT BILIRUBIN 0.3 mg/dL (0.00-0.20); TOTAL BILIRUBIN 0.77 mg/dL (0.20-1.00)
[2019-05-01 06:58] LABS: BASO# 0.01 X1000 (0.0-0.2); BASO% 0.1 % (0.0-0.8); EOS# 0.08 X1000 (0.0-0.7); EOS% 1.2 % (0.0-10.0); HEMATOCRIT 40.4 % (42.0-52.0); LYMPH# 0.75 X1000 (1.2-3.4); LYMPH% 11.2 % (20.5-51.1); MCH 30.8 PG (27-31); MCHC 32.2 g/dL (33-37); MCV 95.7 FL (81-99); MONO# 0.86 X1000 (0.11-0.59); MONO% 12.8 % (1.7-9.3); MPV 10.5 FL (7.4-10.4); NEUT# 5.02 X1000 (1.4-6.5); NEUT% 74.7 % (42.2-75.2); PLT 97 X1000 (130-400); RBC 4.22 XMIL (4.7-6.1); RDW 15.4 % (11.5-14.5); WBC 6.72 X1000 (4.8-10.8)
--- NOTE | 2019-05-01 07:27 | Diag Imaging Result Doc PS360 ---
EXAM: CHEST-PORTABLE 05/01/2019 HISTORY: dyspnea TECHNIQUE: AP portable at 0559 COMMENT: There are bilateral pleural effusions. There is worsened pulmonary edema particularly over the right upper lobe. The right pleural effusion is also increased. IMPRESSION: Worsened pulmonary edema and pleural effusion on the right. Electronically signed by Navin Chairez 05/01/2019 7:24 AM
[2019-05-01] MEDS: LEVAQUIN PO SCH (08:26)
[2019-05-01] MEDS: LASIX IV SCH ×2 (08:26→20:37)
[2019-05-01] MEDS: LANOXIN PO SCH (08:26)
[2019-05-01] MEDS: LOVENOX SUBQ SCH ×2 (08:27→20:38)
[2019-05-01] MEDS ORDERED: MAGNESIUM SULFATE 2 GM/S.W.I. 2 GM/50 ML IVPB IV ONE (08:30)
[2019-05-01] MEDS ORDERED: LASIX IV SCH (09:00)
[2019-05-01] MEDS ORDERED: LASIX IV ONE (09:59)
--- NOTE | 2019-05-01 10:33 | INFECTIOUS DISEASE PROGRESS NO ---
DATE: 05/01/2019 PRESENT ILLNESS: The patient has a streptococcal bacteremia and pneumonia and also an Enterobacter urinary tract infection. MEDICATIONS: The patient has been on Levaquin now for 8 days. PHYSICAL EXAMINATION: Vital Signs: Temperature is 97.8 degrees, pulse 106, respirations 19, blood pressure 106/83. General: This is a chronically ill-appearing elderly male. He is in no acute distress. HEENT: The patient is now wearing an oxygen mask. There is no drainage from his nose or ears, and I did not see any white patches on his tongue. Neck: No pain with movement with movement. Lungs: Clear to auscultation. Cardiovascular: Heart rate is irregular. Abdomen: Soft and not tender. Neurologic: The patient is alert. He does not have a tremor. He can move his extremities but he is weak. LABORATORY AND RADIOLOGY: Chest x-ray shows worsening pulmonary edema. CBC shows a white count of 6720, hemoglobin 13, and platelet count 97,000. Creatinine is 1. GFR is greater than 60. ASSESSMENT AND PLAN: The patient has a streptococcal bacteremia and pneumonia and also an Enterobacter urinary tract infection. This is the 8th day of treatment with Levaquin and I am going to treat for another 6 days to complete a 14-day course. COMORBIDITIES: The patient is elderly. cc: Wilver Hinojosa MD
--- NOTE | 2019-05-01 11:02 | Diag Imaging Result Doc PS360 ---
CT THORAX W/O CONTRAST - 05/01/2019 INDICATION: Pneumonia, CHF COMPARISON: X-ray from 05/01/2019 FINDINGS: There are [id number] bilateral pleural effusions. There is indeed cardiomegaly. No adenopathy. There are dense infiltrates bilaterally, but there are also large areas of completely normal appearing lung. There is moderate COPD. No pneumothorax. Upper abdominal images are unremarkable. Bones are intact. IMPRESSION: 1. The infiltrates appear more likely to be due to dense bilateral pneumonia. Large areas of normal-appearing lung argue against pulmonary edema. 2. Cardiomegaly. Bilateral pleural effusions. This exam was performed using automated exposure control, adjustment of mA or kV according to patient size, and/or use of iterative reconstruction technique Electronically signed by Damián Jimenez 05/01/2019 11:00 AM
--- NOTE | 2019-05-01 14:03 | CARDIOLOGY PROGRESS NOTE ---
DATE: 05/01/2019 SUBJECTIVE: Mr. Coombs reports his breathing is doing well although he currently is on a Venti- Mask. OBJECTIVE: Vital Signs: He is afebrile. His heart rate has been a bit more elevated in the 100s to 110s. His blood pressure is 107/62. His I's and O's are difficult to track secondary to a leaking Odonnell catheter yesterday. General: He is in no acute distress. Cardiovascular: He is in an irregularly irregular rhythm. He has 1+ bilateral lower extremity edema and warm and well perfused extremities. Respiratory: His chest exam has coarse breath sounds diffusely. Rales bilaterally as well. Abdomen: Soft, nontender. PERTINENT DATA: His white count 6.7, hematocrit 40, platelet count is 97,000. His sodium is 141, potassium 3.9, BUN is 25, creatinine is 1. His magnesium level is 1.4 which we already repleted. His proBNP is 7368 which is down from 28,000. ASSESSMENT: Mr. Coombs is an 83-year-old gentleman who presented with cardiogenic shock, atrial fibrillation, shock liver. Acute kidney injury. He has developed a pneumonia. PLAN: We ordered a CT scan of his chest which would suggest dense bilateral pneumonias. Likely not pulmonary edema based on the radiology read. His proBNP is markedly improved on current medications. I will likely continue the Milrinone for another 24 hours. We have escalated his diuretics slightly. Hopefully, we can reinstitute some heart failure medications. Presently, I would not plan on cardioverting him given the appearance of his lungs and his dense pneumonias. cc: Ant Andersen MD
[2019-05-02] MEDS: LOPRESSOR PO SCH ×4 (01:20→19:46)
[2019-05-02] MEDS: CARDIZEM 100 MG/NS 100 MG/100 ML IVPB IV SCH ×2 (01:20→15:17)
[2019-05-02] MEDS: PRIMACOR 20 MG/D5W 100 ML 20 MG/100 ML IVPB IV SCH (03:04)
[2019-05-02] MEDS ORDERED: SODIUM PHOSPHATE 35 MMOL in NS 250 ML IV ONE (06:16)
[2019-05-02 07:02] LABS: ALLEN TEST YES; BE 13.6 mmoll (-3.0-3.0); BLOOD TYPE ARTERIAL; HCO3-(ACT) 35.4 mmoll (20.0-26.0); METHB 1.3 % (0.0-1.5); O2(CT) 17.9 mL/dL (15.0-23.0); O2HB 92.9 % (95.0-99.0); PCO2(98.6) 47 mmHg (35-45); PO2(98.6) 62 mmHg (60-100); SAMPLE BLOOD; SAO2 96.4 % (95.0-100.0); THB 13.7 g/dL (11.5-17.4); pH(98.6) 7.52 (7.35-7.45)
[2019-05-02 07:04] LABS: MODALITY VENTIMASK
[2019-05-02 07:11] LABS: BASO# 0.05 X1000 (0.0-0.2); BASO% 0.5 % (0.0-0.8); EOS# 0.01 X1000 (0.0-0.7); EOS% 0.1 % (0.0-10.0); HEMATOCRIT 41.5 % (42.0-52.0); HEMOGLOBIN 13.4 g/dL (14.0-18.0); IMM GRAN# 0.06 X1000 (0.0-0.04); IMM GRAN% 0.7 % (0.0-0.5); LYMPH# 0.89 X1000 (1.2-3.4); LYMPH% 9.7 % (20.5-51.1); MCH 30.2 PG (27-31); MCHC 32.3 g/dL (33-37); MCV 93.5 FL (81-99); MONO# 0.88 X1000 (0.11-0.59); MONO% 9.6 % (1.7-9.3); MPV 10.6 FL (7.4-10.4); NEUT# 7.24 X1000 (1.4-6.5); NEUT% 79.4 % (42.2-75.2); PLT 95 X1000 (130-400); RBC 4.44 XMIL (4.7-6.1); RDW 15.1 % (11.5-14.5); WBC 9.13 X1000 (4.8-10.8)
--- NOTE | 2019-05-02 07:26 | PROGRESS NOTE ---
DATE: 05/02/2019 SUBJECTIVE: The patient reports breathing fine today. He continues to require oxygen by Venturi mask. No other complaints noted. OBJECTIVE: Vital Signs: Temperature 99.1 degrees, heart rate 105, respiratory rate 19, blood pressure 111/61, O2 saturation is 98% on Venturi mask. General: This is a chronically ill- appearing 83-year-old male lying in bed in no acute distress. HEENT: Head is normocephalic, atraumatic. Mucous membranes are dry. Neck: No JVD noted. No carotid bruits. No lymphadenopathy. No thyromegaly. Cardiovascular: Irregularly irregular heart rhythm. Tachycardic but no murmurs, gallops, or rubs noted. Respiratory: Crackles and rhonchi is noted still in both pulmonary bases. The patient is not using any accessory muscles or having work of breathing. Abdomen: Soft, nontender to palpation. Bowel sounds present. No organomegaly. Extremities: 2+ pitting edema noted still in both lower extremities. Peripheral pulses present in both legs. Neurological: The patient is alert and oriented x3. Moves all 4 extremities. LABORATORY DATA: Pending at the time of dictation. IMAGING: CT of the chest done yesterday shows infiltrates appear more likely to be due to dense bilateral pneumonia, large areas of normal appearing lungs argue against pulmonary edema, cardiomegaly with bilateral pleural effusion. ASSESSMENT AND PLAN: 1. Shock on presentation likely secondary to a combination of cardiogenic shock, septic shock, left lower lobe pneumonia, a urinary tract infection, and bacteremia. The patient continues to be sick. CT of the chest ordered by Dr. Andersen shows results as above. Currently this patient has been receiving for pneumonia Levaquin, but considering that his pneumonia looks worse we will talk with Dr. Hinojosa from Infectious Disease to see if this patient will need to be on stronger antibiotics. At this point we will continue to monitor this patient closely. 2. Atrial fibrillation with rapid ventricular rate. The patient is on Cardizem, digoxin and Toprol. Considering that this patient has this pneumonia that is getting worse, Dr. Andersen is not planning to do any cardioversion in the near future. I think we can try to do it if the patient is more stable. 3. Acute kidney injury, completely resolved. 4. Bacteremia due to Streptococcus sanguinis. We will continue with Levaquin. Today is day #9 of treatment. According to Dr. Hinojosa we will do 14 days of antibiotics total. 5. Left lower lobe pneumonia. Those are getting worse according to the last ABG that we have ordered. We will continue following the recommendations by Dr. Hinojosa. 6. Disposition. We will continue to monitor this patient closely. Cardiology help really appreciated. cc: Bert Lopez MD MTDD
[2019-05-02 07:29] LABS: AGAP 9; ALBUMIN 2.9 g/dL (3.5-5.0); BUN 25 mg/dL (8-22); CALCIUM 7.8 mg/dL (8.8-10.2); CHLORIDE 97 mmol/L (98-107); COSMO 286; CREATININE 1.1 mg/dL (0.7-1.2); ESTIMATED GFR > 60; GLUCOSE 112 mg/dL (70-104); PHOSPHORUS 2.4 mg/dL (2.7-4.5); POTASSIUM 3.8 mmol/L (3.5-5.1); SODIUM 141 mmol/L (136-145); TCO2 35 mmol/L (25-35)
[2019-05-02 07:32] LABS: ALB/GLOB RATIO 1.5; ALBUMIN 2.9 g/dL (3.5-5.0); DIRECT BILIRUBIN 0.3 mg/dL (0.00-0.20); TOTAL BILIRUBIN 0.78 mg/dL (0.20-1.00); TOTAL PROTEIN 4.9 g/dL (6.3-8.3)
[2019-05-02] MEDS: LANOXIN PO SCH (09:06)
[2019-05-02] MEDS: LEVAQUIN PO SCH (09:06)
[2019-05-02] MEDS: LOVENOX SUBQ SCH ×3 (09:07→20:11)
[2019-05-02] MEDS: LASIX IV SCH (09:07)
[2019-05-02] MEDS: NEUTRA-PHOS PO SCH ×5 (09:07→20:11)
[2019-05-02] MEDS: PRILOSEC PO SCH ×3 (09:31→20:11)
[2019-05-02] MEDS ORDERED: AYR NASAL SPRAY NAS PRN (10:18)
[2019-05-02] MEDS: MAXIPIME 2 GM/NS 2 GM/100 ML IVPB IV SCH ×2 (11:15→17:28)
[2019-05-02] MEDS: ZYVOX PO SCH ×3 (11:15→20:11)
[2019-05-02] MEDS ORDERED: NS 500 ML IV ONE (14:24)
--- NOTE | 2019-05-02 14:36 | INFECTIOUS DISEASE PROGRESS NO ---
DATE: 05/02/2019 PRESENT ILLNESS: The patient has a streptococcal bacteremia and pneumonia, and an Enterobacter urinary tract infection. I agree with Dr. Vidal that the patient's CT of the chest showed that there was increasing bilateral dense infiltrates which are due to pneumonia, and this has occurred when the patient was just on Levaquin. MEDICATIONS: As mentioned above, the patient has been on Levaquin now for 9 days. PHYSICAL EXAMINATION: Vital Signs: Temperature is 98.8 degrees, pulse 120, respirations 20, and blood pressure 110/56. General: This is a chronically ill-appearing elderly male. He is in no acute distress. Head/eyes/ears/nose/throat: There was no drainage from the nose or ears. I did not see any white patches on his tongue. Neck: No pain with movement. Lungs: There were bilateral rhonchi. Cardiovascular: Heart rate is irregular. Abdomen: Soft and nontender. Neurologic: Yesterday, the patient was alert, and today he seems to be a little lethargic. He does not have a tremor. He does answer questions, and moves his extremities to request. LABORATORY AND RADIOLOGY: CT scan of the chest shows bilateral pneumonia and pleural effusion, both of which are getting worse. The CBC shows a white count of 9130, hemoglobin 13.4, and platelet count 95,000. ASSESSMENT AND PLAN: Patient has streptococcal bacteremia and pneumonia, and also an Enterobacter urinary tract infection. I agree with Dr. Vidal that since the CT scan shows that the patient's infiltrates are getting more dense due to pneumonia despite the patient being on Levaquin. Therefore, I am going to stop the patient's Levaquin and start him on a combination of Zyvox and cefepime. Some of the side effects of the medications including rash, diarrhea and hemato- toxicity have been explained to the patient and his , and they agree with treatment. The cefepime also has good activity against the Enterobacter urinary tract infection so that it will continue to be treated also. COMORBIDITIES: The patient is elderly. cc: Wilver Hinojosa MD
--- NOTE | 2019-05-02 18:22 | CARDIOLOGY PROGRESS NOTE ---
DATE: 05/02/2019 SUBJECTIVE: Mr. Coombs has a poor appetite today. In addition, he is reporting some weakness. Breathing has been relatively stable. PHYSICAL EXAMINATION: Vital signs: He is afebrile. His heart rates are in the low 100s to 110s. His blood pressure is 108/51. General: He is in no acute distress. Cardiovascular: He sounds to be in an irregularly irregular rhythm. He has no obvious murmurs. He has no S3. He has 1+ bilateral lower extremity edema. Chest exam: Has coarse breath sounds. No increased work of breathing. Abdomen: Soft, nontender. PERTINENT DATA: His proBNP is 5801, which is down from 7000 yesterday. His albumin is 2.9. BUN and creatinine are 25 and 1.1, which is relatively stable. His white count is 9.1, hematocrit 41 and platelet count is 95,000. ASSESSMENT: Mr. Coombs is an 83-year-old gentleman who presented with likely combined congestive heart failure as well as septic shock. PLAN: At this point, his breathing issues seem most likely related to the worsening pneumonia noted on a CT yesterday. I will stop the Milrinone. His proBNP is significantly improved from previously. We have increased his diuretic, and his BUN and creatinine seem relatively stable over the last 3 days. We will continue on his current rate. We will try to continue to rate control him, but given his degree of pneumonia, levels in the low 100s to 110s would be acceptable. cc: Ant Andersen MD
[2019-05-03] MEDS: CARDIZEM 100 MG/NS 100 MG/100 ML IVPB IV SCH ×2 (01:49→12:59)
[2019-05-03] MEDS: MAXIPIME 2 GM/NS 2 GM/100 ML IVPB IV SCH ×3 (01:51→17:37)
[2019-05-03] MEDS: LOPRESSOR PO SCH ×4 (01:52→20:25)
[2019-05-03 05:10] LABS: ALLEN TEST YES; BE 11.2 mmoll (-3.0-3.0); BLOOD TYPE ARTERIAL; HCO3-(ACT) 33.5 mmoll (20.0-26.0); METHB 1.3 % (0.0-1.5); O2HB 92.1 % (95.0-99.0); PO2(98.6) 62 mmHg (60-100); SAMPLE BLOOD; SAO2 95.7 % (95.0-100.0); THB 13.9 g/dL (11.5-17.4); pH(98.6) 7.46 (7.35-7.45)
[2019-05-03 05:12] LABS: MODALITY VENTIMASK; PCO2(98.6) 52 mmHg (35-45)
[2019-05-03 06:22] LABS: BASO# 0.01 X1000 (0.0-0.2); BASO% 0.1 % (0.0-0.8); EOS# 0.01 X1000 (0.0-0.7); EOS% 0.1 % (0.0-10.0); HEMATOCRIT 40.4 % (42.0-52.0); HEMOGLOBIN 13.2 g/dL (14.0-18.0); IMM GRAN# 0.05 X1000 (0.0-0.04); IMM GRAN% 0.4 % (0.0-0.5); LYMPH# 0.88 X1000 (1.2-3.4); LYMPH% 6.6 % (20.5-51.1); MCH 30.2 PG (27-31); MCHC 32.7 g/dL (33-37); MCV 92.4 FL (81-99); MONO# 0.93 X1000 (0.11-0.59); MPV 10.9 FL (7.4-10.4); NEUT# 11.48 X1000 (1.4-6.5); NEUT% 85.8 % (42.2-75.2); PLT 97 X1000 (130-400); RBC 4.37 XMIL (4.7-6.1); RDW 15.4 % (11.5-14.5); WBC 13.36 X1000 (4.8-10.8)
[2019-05-03 06:29] LABS: ALB/GLOB RATIO 1.1; ALBUMIN 2.5 g/dL (3.5-5.0); DIRECT BILIRUBIN 0.3 mg/dL (0.00-0.20); TOTAL BILIRUBIN 0.76 mg/dL (0.20-1.00); TOTAL PROTEIN 4.7 g/dL (6.3-8.3)
[2019-05-03] MEDS: PRILOSEC PO SCH ×2 (06:32→20:25)
--- NOTE | 2019-05-03 07:17 | PROGRESS NOTE ---
DATE: 05/03/2019 SUBJECTIVE: Patient reports still feeling somehow short of breath. The patient is requiring Cardizem drip at 10 mg per hour. No other issues noted. OBJECTIVE: Vital Signs: Temperature 98.7 degrees, heart rate 96, respiratory 21, blood pressure 114/67, O2 saturation 95% on Venturi mask. General Examination: A chronically ill-appearing, 83- year-old male, lying in bed in no acute distress. HEENT: Head is normocephalic, atraumatic. Mucous membranes dry. Neck: No JVD noted. No carotid bruits. No lymphadenopathy. Cardiovascular exam: Irregularly irregular heart rhythm and tachycardic, but no murmurs, gallops, or rubs noted. Respiratory exam: Crackles and rhonchi are still in both pulmonary bases. The patient is not using any accessory muscles or having work of breathing. Abdomen: Soft, nontender to palpation. Bowel sounds present. No organomegaly. Extremities: There is 2+ pitting edema noted still in both lower extremities. Peripheral pulses present in both legs. Neurological exam: Patient is alert and oriented x3. Moves 4 extremities. LABORATORY DATA: Pending at the time of my dictation. ASSESSMENT AND PLAN: 1. Shock on presentation likely secondary to combination cardiogenic shock, septic shock, lower lobe pneumonia, urinary tract infection and bacteremia. Patient continues to be sick. Two days ago, CT of the chest showed worsening pneumonia, so Dr. Hinojosa from Infectious Disease has decided to change antibiotics to Zyvox and cefepime. We will continue with the same management. 2. Atrial fibrillation with rapid ventricular response. Patient continues to require Cardizem drip. At this point, is running at 10 mg/hour. Patient is on digoxin and Toprol. Considering his worsening pneumonia, he is not requiring cardioversion in the near future. We will continue to monitor. 3. Acute kidney injury, resolved. 4. Bacteremia due to Streptococcus sanguinis. Currently, patient is on Zyvox and cefepime. We will continue with the same management. 5. Left lower lobe pneumonia. Antibiotics have been changed to Zyvox and cefepime. We will continue to monitor. Oxygen needs still high with Venturi mask. We will continue with the same management. 6. Disposition: At this point, we will continue to monitor this patient closely. cc: Bert Lopez MD
[2019-05-03 07:24] LABS: AGAP 14; BUN 24 mg/dL (8-22); CALCIUM 7.4 mg/dL (8.8-10.2); CHLORIDE 100 mmol/L (98-107); COSMO 289; ESTIMATED GFR > 60; GLUCOSE 101 mg/dL (70-104); POTASSIUM 3.5 mmol/L (3.5-5.1); SODIUM 143 mmol/L (136-145); TCO2 29 mmol/L (25-35)
[2019-05-03] MEDS ORDERED: LEVAQUIN PO SCH (09:00)
[2019-05-03 09:08] LABS: BANDS 6 % (0-1); EOS 2 % (1-10); LYMPHS 4 % (21-51); MONO 2 % (1-9); SEGS 86 % (42-75)
[2019-05-03] MEDS: LANOXIN PO SCH (09:30)
[2019-05-03] MEDS: ZYVOX PO SCH ×2 (09:31→20:25)
[2019-05-03] MEDS: LOVENOX SUBQ SCH ×2 (09:31→20:25)
[2019-05-03] MEDS: NEUTRA-PHOS PO SCH ×4 (09:32→20:25)
[2019-05-03] MEDS: LASIX IV SCH (09:41)
--- NOTE | 2019-05-03 15:48 | CARDIOLOGY PROGRESS NOTE ---
DATE: 05/03/2019 SUBJECTIVE: Mr. Coombs seems a little bit more sleepy today. He has no complaints otherwise. PHYSICAL EXAMINATION: vital signs: He is afebrile. His heart rate seems to be predominantly in the 90s to the low 100s. His blood pressure is 112/67. General: He is in no acute distress. Cardiovascular: He is in an irregularly irregular rhythm which is consistent with his atrial fibrillation. Chest: Coarse breath sounds, somewhat reduced diffusely. He has no increased work of breathing. He is currently on a Ventimask. Abdomen: Soft, nontender. PERTINENT DATA: His white count is 13.3, which is up from 9 yesterday. His hematocrit is 40. His platelet count is 97,000. He has a slight bandemia of 6. His sodium is 143, potassium is 3.5, BUN 24, creatinine is 1. His albumin is 2.5. ASSESSMENT: Mr. Coombs is an 83-year-old gentleman who presented with atrial fibrillation, congestive heart failure, as well as pneumonia. His pneumonia seems to have worsened. PLAN: Patient is seemingly worse clinically. He seems more somnolent today. His white count has elevated and he has a bandemia. His atrial fibrillation seems to be reasonably controlled. I do not have any further recommendations presently. We will continue with supportive care from a cardiovascular standpoint. cc: Ant Andersen MD
[2019-05-04] MEDS: LOPRESSOR PO SCH ×4 (01:43→20:50)
[2019-05-04] MEDS: MAXIPIME 2 GM/NS 2 GM/100 ML IVPB IV SCH ×2 (01:43→09:02)
[2019-05-04] MEDS: PRILOSEC PO SCH ×2 (06:07→20:50)
--- NOTE | 2019-05-04 06:55 | PROGRESS NOTE ---
DATE: 05/04/2019 SUBJECTIVE: Patient reports feeling still somewhat short of breath. He continues to require a Cardizem drip at 5 mg per hour. No other issues noted as per nursing staff overnight. OBJECTIVE: Vital Signs: Temperature 97.9, heart rate 90, respiratory rate 19, blood pressure 105/60, O2 saturation 96% on Venturi mask. General Examination: This is a chronically ill- appearing, 83-year-old, male, lying in bed, in no acute distress. HEENT: Head is normocephalic, atraumatic. Mucous membranes dry. Neck: No JVD noted. No carotid bruits. No lymphadenopathy. Cardiovascular Examination: Irregularly irregular heart rhythm. Tachycardic but no murmurs, gallops, or rubs noted. Respiratory Examination: Crackles and rhonchi still present in both pulmonary bases. Actually, the same in comparing with the last 3 to 4 days. The patient is not using any accessory muscles or having work of breathing. Abdomen: Soft, nontender to palpation. Bowel sounds present. No organomegaly. No signs of peritoneal irritation. Extremities: There is 1+ pitting edema in both lower extremities. Peripheral pulses present in both legs. Neurological Examination: The patient is a little bit sleepy and slow but alert and oriented. Moves 4 extremities. Laboratory Data: Pending at the time of my dictation. ASSESSMENT AND PLAN: 1. Sepsis secondary to bilateral pneumonia. Unfortunately, this patient is not improving. Even though we have changed the antibiotics as per Dr. Hinojosa's recommendation to Zyvox and cefepime, the patient continues to be very sick. He is not breathing okay. He still is complaining of shortness of breath. At this point, we will continue with the current antibiotic management. 2. Atrial fibrillation with rapid ventricular response. That condition is getting better, now requiring 5 mg of Cardizem drip. Now, he is on 5 mg per hour. The patient is receiving digoxin and Toprol. We will continue with the same management. Cardiology is following this patient. We will follow recommendations. 3. Acute kidney injury, resolved. 4. Bacteremia due to Streptococcus sanguinis. Currently, this patient is on Zyvox and cefepime. We will continue with the same management. 5. Disposition. We will continue to monitor this patient closely. He is not improving as we were expecting. He has been here in the hospital for 13 days. His prognosis is not good. We will continue to monitor. cc: Bert Lopez MD
[2019-05-04 07:06] LABS: AGAP 12; ALB/GLOB RATIO 0.9; ALBUMIN 2.6 g/dL (3.5-5.0); ALKALINE PHOSPHATASE 68 U/L (32-122); BUN 31 mg/dL (8-22); CALCIUM 7.9 mg/dL (8.8-10.2); CHLORIDE 101 mmol/L (98-107); COSMO 299; CREATININE 1.1 mg/dL (0.7-1.2); ESTIMATED GFR > 60; GLUCOSE 104 mg/dL (70-104); GOT 22 U/L (10-34); GPT 36 U/L (10-44); POTASSIUM 3.6 mmol/L (3.5-5.1); SODIUM 147 mmol/L (136-145); TCO2 34 mmol/L (25-35); TOTAL BILIRUBIN 0.62 mg/dL (0.20-1.00); TOTAL PROTEIN 5.4 g/dL (6.3-8.3)
[2019-05-04] MEDS: ZYVOX PO SCH ×2 (09:02→20:50)
[2019-05-04] MEDS: LASIX IV SCH (09:02)
[2019-05-04] MEDS: LANOXIN PO SCH (09:02)
[2019-05-04] MEDS: LOVENOX SUBQ SCH ×2 (09:02→20:50)
[2019-05-04] MEDS: MERREM 2 GM in NS 100 ML IV SCH ×2 (11:00→20:50)
--- NOTE | 2019-05-04 13:00 | Diag Imaging Result Doc PS360 ---
EXAM: CHEST-1 VIEW INDICATION: pneumonia TECHNIQUE: One view COMPARISON: 05/01/2019 FINDINGS: There has been an increase in size of the right pleural effusion that is small to moderate-sized on the current study. The smaller left effusion is approximately stable. Bilateral diffuse airspace infiltrates and interstitial infiltrates suggesting pulmonary edema +/- pneumonia are grossly unchanged. Cardiac silhouette is stable. IMPRESSION: Increase in right-sided pleural effusion. Stable chest, otherwise. Electronically signed by Henri Murguia 05/04/2019 12:58 PM
--- NOTE | 2019-05-04 13:44 | INFECTIOUS DISEASE PROGRESS NO ---
DATE: 05/04/2019 PRESENT ILLNESS: The patient has a streptococcal bacteremia and an Enterobacter urinary tract infection. He also has a pneumonia which despite changing antibiotics to a more broad-spectrum does not seem to be getting any better. MEDICATIONS: The patient currently is on cefepime and Zyvox now for 3 days. PHYSICAL EXAMINATION: Vital Signs: Temperature is 98 degrees, pulse 99, respirations 17, blood pressure is 114/72. General: This is a chronically ill-appearing, elderly male. He is now in a little bit of respiratory distress. He also is slightly lethargic. Head, Eyes, Ears, Nose, and Throat: There is no drainage from the nose or ears. He does not have any white coating on his tongue. Neck: No apparent stiffness. Lungs: Bilateral rhonchi. Cardiovascular: Heart rate is irregular. Abdomen: Soft and nontender. Extremities: The patient has leg edema but no erythema. Neurologic: Today, the patient is lethargic. He did follow some requests to open his mouth and to move his arms. There is no tremor. LAB AND RADIOLOGY: Chest x-ray result is pending. Liver function studies are normal. Procalcitonin is 0.37 which means the patient is likely to have pneumonia. The creatinine is 1.1. GFR is greater than 60. The arterial blood gases show a pH of 7.46, a PO2 of 62, and a pCO2 of 52. The CBC shows a white count of 13,360, hemoglobin 13.2, platelet count 97,000. ASSESSMENT AND PLAN: The patient has had a streptococcal bacteremia which has been treated. He has his Enterobacter urinary tract infection. Pulmonary-cam, the patient is not getting any better after we changed his antibiotics. I am going to continue Zyvox and discontinue cefepime, and put the patient on meropenem. Some of the side effects of the current antibiotics, namely Zyvox and meropenem, including rash, diarrhea, seizures, and hematotoxicity have been explained to the patient and his . The agrees with continuing the new treatment. COMORBIDITIES: The patient is elderly. cc: Wilver Hinojosa MD
[2019-05-04] MEDS: CARDIZEM 100 MG/NS 100 MG/100 ML IVPB IV SCH (18:24)
[2019-05-05] MEDS: MERREM 2 GM in NS 100 ML IV SCH ×2 (03:26→16:40)
[2019-05-05] MEDS: LOPRESSOR PO SCH ×4 (03:27→21:30)
[2019-05-05] MEDS: PRILOSEC PO SCH ×3 (05:37→21:30)
[2019-05-05 06:51] LABS: BASO# 0.01 X1000 (0.0-0.2); BASO% 0.2 % (0.0-0.8); EOS# 0.07 X1000 (0.0-0.7); EOS% 1.1 % (0.0-10.0); HEMATOCRIT 41.9 % (42.0-52.0); HEMOGLOBIN 12.8 g/dL (14.0-18.0); IMM GRAN# 0.03 X1000 (0.0-0.04); IMM GRAN% 0.5 % (0.0-0.5); LYMPH# 0.65 X1000 (1.2-3.4); LYMPH% 10.4 % (20.5-51.1); MCH 29.8 PG (27-31); MCHC 30.5 g/dL (33-37); MCV 97.4 FL (81-99); MONO# 0.36 X1000 (0.11-0.59); MONO% 5.7 % (1.7-9.3); MPV 10.7 FL (7.4-10.4); NEUT# 5.15 X1000 (1.4-6.5); NEUT% 82.1 % (42.2-75.2); PLT 149 X1000 (130-400); WBC 6.27 X1000 (4.8-10.8)
[2019-05-05] MEDS ORDERED: DUONEB (A & A) INH PRN (07:01)
[2019-05-05 07:21] LABS: ALB/GLOB RATIO 0.6; ALBUMIN 2.2 g/dL (3.5-5.0); CREATININE 1.5 mg/dL (0.7-1.2); DIRECT BILIRUBIN 0.2 mg/dL (0.00-0.20); POTASSIUM 3.8 mmol/L (3.5-5.1); TOTAL BILIRUBIN 0.52 mg/dL (0.20-1.00); TOTAL PROTEIN 5.7 g/dL (6.3-8.3)
[2019-05-05 07:37] LABS: ALLEN TEST YES; BE 12.8 mmoll (-3.0-3.0); BLOOD TYPE ARTERIAL; HCO3-(ACT) 34.8 mmoll (20.0-26.0); METHB 1.1 % (0.0-1.5); O2(CT) 16.3 mL/dL (15.0-23.0); O2HB 92.5 % (95.0-99.0); PO2(98.6) 61 mmHg (60-100); SAMPLE BLOOD; SAO2 96.1 % (95.0-100.0); THB 12.5 g/dL (11.5-17.4); pH(98.6) 7.39 (7.35-7.45)
[2019-05-05 07:41] LABS: MODALITY VENTIMASK; PCO2(98.6) 67 mmHg (35-45)
--- NOTE | 2019-05-05 07:47 | PROGRESS NOTE ---
DATE: 05/05/2019 SUBJECTIVE: Patient is more sleepy upon my examination, continues to be a little tachypneic. Continues to require a Cardizem drip at 10 mg/h. No other issues noted as per nursing staff overnight. OBJECTIVE: Vital Signs: Temperature 97.4 degrees, heart rate 113, respiratory rate 22, blood pressure 123/61, O2 saturation 95% on Venturi mask. General: This is a chronically ill-appearing 83-year-old male, lying in bed, sleepy but in no respiratory distress. HEENT: Head is normocephalic, atraumatic. Mucous membranes dry. Neck: No JVD noted. No carotid bruits. No lymphadenopathy. No thyromegaly. Cardiovascular: Irregularly irregular heart rhythm. Tachycardic. No murmurs, gallops, or rubs. Respiratory: Crackles and rhonchi still noted in both pulmonary bases. Patient is not using any accessory muscles or having work of breathing. Abdomen: Soft, nontender to palpation. Bowel sounds present. No organomegaly. No signs of peritoneal irritation. Extremities: 1+ pitting edema in both lower extremities. Peripheral pulses present in both legs. Neurological: Patient is definitely much more sleepy today. Moves 4 extremities spontaneously. Does not answer any questions this morning. LABORATORY DATA: White cell count 6.27, hemoglobin 12.8, hematocrit 41.98, platelets 149,000. ABG and BMP are pending at the time of my dictation. ASSESSMENT AND PLAN: 1. Sepsis secondary to bilateral pneumonia. The patient has not been improving. The patient continues to require a high amount of oxygen. Dr. Hinojosa from Infectious Disease is following this patient. Currently, this patient is on Zyvox, day #4 of treatment and meropenem has been added yesterday to her current treatment. Today is day #2 with that antibiotic. At this point, we will wait at least 48 hours to see how this patient responds to those medications. 2. Atrial fibrillation with rapid ventricular response. Patient continues to be on Cardizem drip at 10 mg/hour. The patient receiving also digoxin and Toprol. Will continue with same management. Cardiology following this patient and we will follow their recommendations. 3. Right pleural effusion. Patient is on Lasix 60 mg IV daily. We will continue to monitor. 4. Bacteremia due to Streptococcus sanguinis. We will continue with antibiotics as above. DISPOSITION: The patient is still unfortunately very sick. He having 14 days in the hospital and the prognosis is not good. We will continue to monitor this patient closely. cc: Bert Lopez MD
[2019-05-05] MEDS: ZYVOX PO SCH ×2 (08:16→21:30)
[2019-05-05] MEDS: LOVENOX SUBQ SCH ×2 (08:16→21:30)
[2019-05-05] MEDS: LANOXIN PO SCH (08:16)
[2019-05-05] MEDS: LASIX IV SCH (08:16)
[2019-05-05] MEDS: DUONEB (A & A) INH SCH ×5 (09:07→23:19)
--- NOTE | 2019-05-05 09:18 | INFECTIOUS DISEASE PROGRESS NO ---
DATE: 05/05/2019 PRESENT ILLNESS: The patient has a streptococcal bacteremia, Enterobacter urinary tract infection, and pneumonia. MEDICATIONS: The patient has been on Zyvox for 4 days and yesterday, I stopped cefepime and put the patient on meropenem. This will be the first day of treatment with meropenem. PHYSICAL EXAMINATION: Vital Signs: Temperature is 98.6 degrees, pulse 87, respirations 25, blood pressure is 109/68. General: This is a chronically ill, elderly male. Today, he is more alert and looks better than he did yesterday. Head, Eyes, Ears, Nose, and Throat: He appears to have decreased hearing and I am uncertain about how good his vision is. He does not have any white patches in his mouth. Neck: No pain with movement. Lungs: Bilateral rhonchi. Cardiovascular: Heart rate is regular. Abdomen: Soft and nontender. Neurologic: The patient was a little bit more alert today than he was yesterday. He did move his arms and legs to requests. He does not have a tremor. LAB AND X-RAY: Chest x-ray shows bilateral infiltrates and an increased right pleural effusion. The CBC shows a white count of 6270, hemoglobin 12.8, and platelet count 149,000. Patient's blood gases show a pH of 7.39, a PO2 of 61, and a pCO2 of 67. Creatinine is 1.5. GFR is 45. Procalcitonin is 0.37 which means the patient is likely to have pneumonia. ASSESSMENT AND PLAN: Currently, the patient's streptococcal bacteremia has been treated successfully. His Enterobacter urinary tract infection and his pneumonia are under treatment now. COMORBIDITIES: The patient is elderly. cc: Wilver Hinojosa MD
[2019-05-05] MEDS: CARDIZEM 100 MG/NS 100 MG/100 ML IVPB IV SCH ×2 (10:23→20:17)
[2019-05-05] MEDS: ALBUMIN 25% IV SCH ×2 (15:25→16:08)
--- NOTE | 2019-05-05 17:54 | CARDIOLOGY PROGRESS NOTE ---
DATE: 05/05/2019 SUBJECTIVE: Mr. Coombs reports he feels a little bit better today. He continues on a relatively high oxygen requirement. PHYSICAL: He is afebrile. His heart rates have been better controlled anywhere from the 70s to low 100s. His blood pressure is 99/64. General: He is in no acute distress. Cardiovascular: He sounds to be in an irregularly irregular rhythm. He has no murmurs. He has no S3. He has 1+ bilateral lower extremity edema. His chest exam has reduced breath sounds somewhat diffusely in the bases. DATA: His white count is 6.2, hematocrit 41, platelet count is 149,000. His sodium is 146, potassium 3.8, BUN 43, creatinine is 1.5 which is up from 31 and 1.1 yesterday, his albumin is 2.2. ASSESSMENT: Mr. Coombs is an 83-year-old gentleman who presented with congestive heart failure, atrial fibrillation and pneumonia. PLAN: His pneumonia seems to be worsening. His renal failure has worsened. His oxygenation is not improving. By chest x-ray it appears that his effusion has increased. I will try to add in some albumin today considering his albumin is 2.2. Patient may benefit from a thoracentesis. cc: Ant Andersen MD
[2019-05-05] MEDS: TYLENOL PO PRN (23:34)
[2019-05-06] MEDS: MERREM 2 GM in NS 100 ML IV SCH ×2 (02:59→15:00)
[2019-05-06] MEDS: LOPRESSOR PO SCH ×4 (02:59→20:44)
[2019-05-06 03:40] LABS: URINE SOURCE CATH
[2019-05-06] MEDS: DUONEB (A & A) INH SCH ×5 (03:44→19:44)
[2019-05-06 03:48] LABS: BILIRUBIN URINE NEGATIVE (NEGATIVE); BLOOD URINE SMALL (NEGATIVE); COLOR YELLOW; GLUCOSE URINE NEGATIVE (NEGATIVE); KETONE URINE TRACE mg/dL (NEGATIVE); LEUKOCYTES URINE NEGATIVE (NEGATIVE); NITRITE URINE NEGATIVE (NEGATIVE); PROTEIN URINE 50 mg/dL (NEGATIVE); SP GRAVITY URINE 1.018; TURBIDITY URINE HAZY (CLEAR); UROBILINOGEN URINE NORMAL (NORMAL)
[2019-05-06 03:50] LABS: UR EPITHELIAL CELLS <10 /HPF (<10); URINE BACTERIA NEGATIVE /HPF; URINE RBC <10 /HPF (<10); URINE WBC 20-40 /HPF (<10)
[2019-05-06 04:50] LABS: ALLEN TEST YES; BE 17.2 mmoll (-3.0-3.0); BLOOD TYPE ARTERIAL; HCO3-(ACT) 38.3 mmoll (20.0-26.0); METHB 1.3 % (0.0-1.5); O2(CT) 15.1 mL/dL (15.0-23.0); O2HB 96.1 % (95.0-99.0); PO2(98.6) 121 mmHg (60-100); SAMPLE BLOOD; SAO2 99.6 % (95.0-100.0); SRATE 12 BPM; pH(98.6) 7.48 (7.35-7.45)
[2019-05-06 04:52] LABS: MODALITY BI PAP; PCO2(98.6) 58 mmHg (35-45)
[2019-05-06] MEDS: CARDIZEM 100 MG/NS 100 MG/100 ML IVPB IV SCH ×3 (05:05→23:19)
[2019-05-06 06:47] LABS: ALB/GLOB RATIO 1.7; ALBUMIN 2.9 g/dL (3.5-5.0); CALCIUM 7.7 mg/dL (8.8-10.2); CREATININE 1.6 mg/dL (0.7-1.2); DIRECT BILIRUBIN 0.2 mg/dL (0.00-0.20); POTASSIUM 3.5 mmol/L (3.5-5.1); TOTAL BILIRUBIN 0.53 mg/dL (0.20-1.00); TOTAL PROTEIN 4.6 g/dL (6.3-8.3)
[2019-05-06] MEDS: PRILOSEC PO SCH ×2 (06:51→20:44)
[2019-05-06 07:03] LABS: BASO# 0.01 X1000 (0.0-0.2); BASO% 0.2 % (0.0-0.8); EOS% 1.9 % (0.0-10.0); HEMOGLOBIN 10.5 g/dL (14.0-18.0); IMM GRAN# 0.04 X1000 (0.0-0.04); IMM GRAN% 0.8 % (0.0-0.5); LYMPH# 1.04 X1000 (1.2-3.4); MCH 29.3 PG (27-31); MCHC 30.9 g/dL (33-37); MONO# 0.44 X1000 (0.11-0.59); MONO% 8.5 % (1.7-9.3); MPV 10.2 FL (7.4-10.4); NEUT# 3.57 X1000 (1.4-6.5); NEUT% 68.6 % (42.2-75.2); PLT 153 X1000 (130-400); RBC 3.58 XMIL (4.7-6.1); RDW 15.7 % (11.5-14.5)
[2019-05-06] MEDS: ZYVOX PO SCH ×2 (08:57→20:44)
[2019-05-06] MEDS: LANOXIN PO SCH (08:57)
[2019-05-06] MEDS: LASIX IV SCH (08:58)
[2019-05-06] MEDS: LOVENOX SUBQ SCH ×2 (08:59→20:44)
--- NOTE | 2019-05-06 10:31 | INFECTIOUS DISEASE PROGRESS NO ---
DATE: 05/06/2019 PRESENT ILLNESS: The patient had a streptococcal bacteremia, but this has been treated. Currently the patient is being treated for pneumonia and an Enterobacter urinary tract infection. MEDICATIONS: This is day #5 of Zyvox and day #2 of meropenem. PHYSICAL EXAMINATION: Vital Signs: Temperature did reach a maximum of 102 last night, now it is 97.4. Pulse 91, respirations 19, blood pressure 99/69. General: This is a chronically ill- appearing elderly male. He is somewhat lethargic today, but he is able to talk and answer questions. Head/eyes/ears/nose/throat: The patient has decreased hearing. I am uncertain about how good his vision is and he does not have any white patches in his mouth. Neck: No pain with movement. Lungs: Bilateral rhonchi. Cardiovascular: Heart rate is regular. Abdomen: Soft and nontender. Neurologic: The patient is somewhat lethargic today, but he did move his extremities to request. Extremities: The patient has edema but no erythema in his legs. LABORATORY AND X-RAY: The CBC shows a white count of 5200, hemoglobin 10.5, platelet count 153,000. Blood gases show a pH of 7.48, a PO2 of 121 and a pCO2 of 58. Creatinine is 1.6. GFR is 42. Liver function studies are normal. Procalcitonin level of 0.37 means the patient is likely to have pneumonia. The stool for Clostridium difficile toxin was negative. Urinalysis showed white cells but no bacteria. Urine culture is pending. The influenza screen is negative. Blood cultures are pending and sputum culture grew normal quentin. ASSESSMENT AND PLAN: The patient is being treated now for his Enterobacter urinary tract infection and pneumonia with the combination of Zyvox and meropenem. COMORBIDITIES: The patient is elderly. cc: Wilver Hinojosa MD
--- NOTE | 2019-05-06 12:44 | PROGRESS NOTE ---
DATE: 05/06/2019 SUBJECTIVE: This morning Mr. Coombs refers to be doing stable. He still has some residual shortness of breath. He was eating on a Venturi mask. OBJECTIVE: Vital signs: Blood pressure 104/66, pulse of 91, respirations 26, and temperature is 98.4 degrees. Patient is saturating on 97% on Venturi mask. General: Mr. Coombs is an 83-year- old gentleman. He was sitting up at the edge of the bed in no distress. HEENT: Mucosa is pink and moist. Anicteric. Acyanotic. Neck: Supple. Chest: Air entry was bilaterally reduced, more so to the right posterior lung field. There is diffuse both rhonchi and crackles in the posterior lung carter. Cardiovascular: Irregularly irregular. I did not hear any murmurs. GI: Abdomen is soft and nontender. Bowel sounds are present. Extremities: 1+ pedal edema. SIGNAL MAINTENANCE TECHNICIAN: Patient is awake and alert. Follows basic commands. LABORATORY DATA: WBC is 5.20, hemoglobin 10.5, and platelet count of 153,000. ABG shows pCO2 of 58. Chemistry is also reviewed. Creatinine is 1.6. CURRENT MEDICATIONS: Have all been reviewed. No changes. ASSESSMENT: 1. Sepsis secondary to bilateral pneumonia. 2. Acute hypoxemic and hypercarbic respiratory failure. 3. Bilateral pleural effusions. The right is more than the left, presumably from the congestive heart failure. However,a parapneumonic effusion cannot be completely ruled out. The patient will need to be tapped. 4. Atrial fibrillation with rapid ventricular response. 5. Streptococcus sanguinous bacteremia. 6. Enterobacter cloacae urinary tract infection. 7. Acute kidney injury. We are going to continue monitoring this. Avoid nephrotoxins. Patient is on diuretic therapy. 8. Congestive heart failure with an ejection fraction of 15% associated with severe global hypokinesis. 9. Chronic cystitis, questionable BPH. cc: Pranav Lowe MD
[2019-05-07] MEDS: DUONEB (A & A) INH SCH ×7 (00:01→22:21)
[2019-05-07] MEDS: MERREM 2 GM in NS 100 ML IV SCH ×2 (02:58→14:48)
[2019-05-07] MEDS: LOPRESSOR PO SCH ×4 (02:58→20:20)
[2019-05-07 06:42] LABS: BASO# 0.02 X1000 (0.0-0.2); BASO% 0.3 % (0.0-0.8); EOS# 0.04 X1000 (0.0-0.7); EOS% 0.6 % (0.0-10.0); HEMATOCRIT 34.9 % (42.0-52.0); HEMOGLOBIN 10.7 g/dL (14.0-18.0); IMM GRAN# 0.04 X1000 (0.0-0.04); IMM GRAN% 0.6 % (0.0-0.5); LYMPH% 15.2 % (20.5-51.1); MCH 29.4 PG (27-31); MCHC 30.7 g/dL (33-37); MCV 95.9 FL (81-99); MONO# 0.42 X1000 (0.11-0.59); MONO% 6.4 % (1.7-9.3); MPV 10.3 FL (7.4-10.4); NEUT# 5.07 X1000 (1.4-6.5); NEUT% 76.9 % (42.2-75.2); PLT 172 X1000 (130-400); RBC 3.64 XMIL (4.7-6.1); RDW 15.8 % (11.5-14.5); WBC 6.59 X1000 (4.8-10.8)
[2019-05-07] MEDS: TYLENOL PO PRN ×2 (06:44→20:17)
[2019-05-07] MEDS: PRILOSEC PO SCH ×2 (06:44→20:22)
[2019-05-07 07:16] LABS: ALBUMIN 2.4 g/dL (3.5-5.0); CALCIUM 8.1 mg/dL (8.8-10.2); CREATININE 1.7 mg/dL (0.7-1.2); PHOSPHORUS 3.5 mg/dL (2.7-4.5); POTASSIUM 3.8 mmol/L (3.5-5.1)
[2019-05-07] MEDS: ZYVOX PO SCH ×2 (09:22→20:18)
[2019-05-07] MEDS: CARDIZEM 100 MG/NS 100 MG/100 ML IVPB IV SCH ×2 (09:22→22:25)
[2019-05-07] MEDS: LANOXIN PO SCH (09:23)
[2019-05-07] MEDS: LOVENOX SUBQ SCH (09:23)
[2019-05-07] MEDS: LASIX IV SCH (09:23)
--- NOTE | 2019-05-07 11:50 | CARDIOLOGY PROGRESS NOTE ---
DATE: 05/07/2019 SUBJECTIVE: Mr. Coombs had a fever last night to 102. He is currently pending a thoracentesis today. PHYSICAL EXAMINATION: Vital Signs: He was febrile to 102 last night. Heart rates are in the low 100s to 120s. Blood pressure is in the 90s-120s systolic. General: He is in no acute distress. Cardiovascular: He is in an irregularly irregular, mildly tachycardic rhythm. He has mild bilateral lower extremity edema. Chest Examination: Has reduced breath sounds bilaterally in the bases. He has no increased work of breathing. His abdomen is soft, nontender. PERTINENT DATA: His white count is 6.6, hematocrit 35, platelet count 172,000. His sodium is 143, potassium is 3.8, BUN 56, creatinine is 1.7 which continues to trend up. ASSESSMENT: Mr. Coombs is an 83-year-old gentleman with pneumonia as well as atrial fibrillation. PLAN: His heart rate right now is being driven by the effusion. Hopefully, with draining this, it will reduce. We will increase his metoprolol to 50 t.i.d. in an effort to try to wean his diltiazem. I do not have any further cardiovascular recommendations. It would be reasonable to consider this patient for a palliative care consult, given his advanced age and his declining status. cc: Ant Andersen MD
--- NOTE | 2019-05-07 12:52 | Diag Imaging Result Doc PS360 ---
EXAM: CHEST-1 VIEW HISTORY: thorancentesis TECHNIQUE: Single view COMPARISON: 05/04/2019 FINDINGS: There are increased interstitial markings bilaterally. Overall these are less pronounced, particularly in the right lung although there is mild worsening in the left lung base. There are small bilateral pleural effusions. No pneumothoraces. No cardiomegaly. IMPRESSION: No postprocedural pneumothorax. Electronically signed by Maury Sarabia 05/07/2019 12:49 PM
--- NOTE | 2019-05-07 13:12 | OPERATIVE NOTE ---
PROCEDURE DATE: 05/07/2019 TIME OF PROCEDURE: 1145 hours. TYPE OF PROCEDURE: Right-sided thoracentesis. INDICATIONS: 1. Pleural effusion compromising respiratory status. 2. Diagnostic and therapeutic purposes. OPERATIVE NOTE: Mr. Coombs is an 83-year-old gentleman who has been in the hospital for some time due to acute hypoxemic and hypercarbic respiratory failure, atrial fibrillation with RVR, congestive heart failure, ejection fraction of 15%, found to have pleural effusion, which is contributing to some of his breathing issue, and it is felt that if he undergoes thoracentesis and relieves the effusion, his respiratory status will improve. Indications, as well as complications, were discussed with Mr. Coombs and the entire family, and they all understood and consented for the procedure to be done. Initially, a chest ultrasound was done to identify the deepest pocket on the right posterior hemithorax. This was done and the area was marked. Subsequently, a chlorhexidine was used as the local antiseptic agent. The skin was anesthetized with 1% lidocaine. Subsequently, a small geneva was done to the identified spot, and the thoracentesis trocar was advanced under negative pressure until pleural fluid was obtained. Subsequently, the trocar was advanced and the needle was removed and this was attached to a low-pressure draining system. Over the course of the 30 minutes, under very low pressure, about 900 mL of serosanguineous fluid was obtained from the right hemithorax. The patient tolerated the procedure without any complication. The fluid was sent for analysis and we are pending the results. A chest x-ray has also been ordered. At the time of the dictation, it was not done yet. Clinically, Mr. Coombs seems to have tolerated the procedure without any complication. His vital signs after the procedure were all stable. He was saturating around 98% to 100% on the Ventimask throughout the procedure. cc: Pranav Lowe MD MTDD
[2019-05-07 13:52] LABS: AMYLASE BODY FLUID 40 U/L; GLUCOSE BODY FLUID 121 mg/dL; LDH BODY FLUID 135 U/L; TOTAL PROT BODY FLUID 1.9 g/dL
--- NOTE | 2019-05-07 14:20 | PROGRESS NOTE ---
DATE: 05/07/2019 SUBJECTIVE: This morning, Mr. Coombs refers to be doing well. He was on Venturi mask at the time of the encounter. There is a lot of family members also at the bedside. OBJECTIVE: General: Mr. Coombs is an 83-year-old elderly gentleman. He was in bed. HEENT: Mucosa is pink and moist. Anicteric. Acyanotic. Neck: Supple. Chest: Air entry was bilaterally reduced, crackles in the posterior lung carter bilaterally. Cardiovascular: Irregularly irregular. No murmurs. No rubs. No gallops. GI: Abdomen is soft. Bowel sounds present. No hepatosplenomegaly. Extremities: Trace pedal edema. RATE ANALYST: The patient is awake. He is kind of slightly lethargic but he easily arousable and follows basic commands. Family members were all at the bedside. LABORATORY DATA: Creatinine is 1.7, BUN is 57. CBC: Hemoglobin is 10.7. So far, repeat blood cultures as well as urine cultures have been negative. ASSESSMENT: 1. Sepsis on presentation secondary to bilateral pneumonia. Patient continues to be on antimicrobial therapy. 2. Hypoxemic and hypercarbic respiratory failure. This seems to be improving. The patient continues to be needing Venturi mask for adequate oxygenation. 3. Bilateral pleural effusion, right is more than the left presumably from congestive heart failure versus possible parapneumonic effusion. Patient is pending thoracentesis today. 4. Atrial fibrillation with rapid ventricular response. The patient continues to be on a drip. 5. Streptococcus sanguinous bacteremia. Repeat blood cultures have been negative. 6. Enterobacter cloacae urinary tract infection. Repeat urine cultures have also been negative. 7. Acute kidney injury. Creatinine continues to be slightly elevated presumably cardiorenal, however, acute tubular necrosis could also be a possibility. 8. Congestive heart failure with ejection fraction of 15% associated with severe global hypokinesis. Cardiology is on board. 9. Chronic cystitis, questionable benign prostatic hypertrophy. The patient is on tamsulosin. So in general, Mr. Coombs has been in the hospital for the past 16 days. He continues to be respiratory compromised. He is pending a right thoracentesis today. We will get Palliative consult on him and go from there. The family also wants rehab evaluation. cc: MD JOHNNY Medina
--- NOTE | 2019-05-07 14:25 | INFECTIOUS DISEASE PROGRESS NO ---
DATE: 05/07/2019 PRESENT ILLNESS: The patient is being treated for pneumonia and an Enterobacter urinary tract infection. Today Dr. Lowe did a right-sided thoracentesis and obtained approximately 900 mL of serosanguineous fluid. MEDICATIONS: This is day 6 of Zyvox and day 3 of meropenem. PHYSICAL EXAMINATION: Vital Signs: Temperature is 99 degrees, pulse 102, respirations 25, blood pressure 112/70. General: This is a chronically ill-appearing elderly male. He is lethargic. Head/eyes/ears/nose/throat: He has decreased hearing. Neck: No pain with movement. Lungs: The patient has clear lungs. Cardiovascular: Heart rate is irregular. Abdomen: Soft and nontender. Neurologic: The patient is lethargic today. He did move his extremities to request. Extremities: The patient has edema and no erythema in his legs. LAB AND X-RAY: Chest x-ray shows decrease in the patient's right lung interstitial markings and an increase in the left lung interstitial markings. There also are small bilateral pleural effusions. The CBC shows a white count of 6590, hemoglobin 10.7, platelet count 172,000. Creatinine is 1.7. GFR is 39. The pleural fluid has been sent for Gram stain, culture and body fluid study which includes cell count. The results of the studies on the pleural fluid are pending. ASSESSMENT AND PLAN: The patient as mentioned above is being treated for pneumonia and urinary tract infection. I plan on continuing Zyvox and meropenem pending the results of Dr. Lowe's thoracentesis. COMORBIDITIES: The patient is elderly. cc: Wilver Hinojosa MD
[2019-05-07 15:13] LABS: BODY FLUID SOURCE PLEURAL FLUID; SPECIMEN PLEURAL FLUID
[2019-05-07 15:14] LABS: PH BODY FLUID 8
[2019-05-07 15:17] LABS: MONOS 82 %; POLYS 18 %; WBC BF 131 /cumm
[2019-05-07 18:50] LABS: ALLEN TEST NO; BE 14.6 mmoll (-3.0-3.0); BLOOD TYPE ARTERIAL; HCO3-(ACT) 36.3 mmoll (20.0-26.0); METHB 1.3 % (0.0-1.5); O2(CT) 15.4 mL/dL (15.0-23.0); O2HB 95.3 % (95.0-99.0); PO2(98.6) 81 mmHg (60-100); SAMPLE BLOOD; SAO2 98.6 % (95.0-100.0); SRATE 12 BPM; THB 11.4 g/dL (11.5-17.4); pH(98.6) 7.39 (7.35-7.45)
[2019-05-07 18:52] LABS: MODALITY BI PAP; PCO2(98.6) 70 mmHg (35-45)
[2019-05-08] MEDS: DUONEB (A & A) INH SCH ×6 (03:25→23:35)
[2019-05-08] MEDS: MERREM 2 GM in NS 100 ML IV SCH ×2 (03:36→16:22)
[2019-05-08] MEDS: TYLENOL PO PRN (03:37)
[2019-05-08 06:13] LABS: BASO# 0.01 X1000 (0.0-0.2); BASO% 0.1 % (0.0-0.8); EOS# 0.06 X1000 (0.0-0.7); EOS% 0.7 % (0.0-10.0); HEMATOCRIT 33.8 % (42.0-52.0); HEMOGLOBIN 10.3 g/dL (14.0-18.0); IMM GRAN# 0.04 X1000 (0.0-0.04); IMM GRAN% 0.5 % (0.0-0.5); LYMPH# 1.01 X1000 (1.2-3.4); LYMPH% 12.3 % (20.5-51.1); MCH 29.5 PG (27-31); MCHC 30.5 g/dL (33-37); MCV 96.8 FL (81-99); MONO# 0.29 X1000 (0.11-0.59); MONO% 3.5 % (1.7-9.3); MPV 10.8 FL (7.4-10.4); NEUT# 6.79 X1000 (1.4-6.5); NEUT% 82.9 % (42.2-75.2); PLT 181 X1000 (130-400); RBC 3.49 XMIL (4.7-6.1); RDW 15.7 % (11.5-14.5)
[2019-05-08 06:13] LABS: ALLEN TEST YES; BE 13.9 mmoll (-3.0-3.0); BLOOD TYPE ARTERIAL; HCO3-(ACT) 35.8 mmoll (20.0-26.0); METHB 0.5 % (0.0-1.5); O2(CT) 14.8 mL/dL (15.0-23.0); O2HB 95.9 % (95.0-99.0); PO2(98.6) 88 mmHg (60-100); SAMPLE BLOOD; SAO2 98.8 % (95.0-100.0); THB 10.9 g/dL (11.5-17.4); pH(98.6) 7.29 (7.35-7.45)
[2019-05-08 06:21] LABS: MODALITY VENTIMASK; PCO2(98.6) 91 mmHg (35-45)
[2019-05-08 06:28] LABS: ALBUMIN 2.4 g/dL (3.5-5.0); CALCIUM 8.2 mg/dL (8.8-10.2); CREATININE 2.2 mg/dL (0.7-1.2); PHOSPHORUS 5.4 mg/dL (2.7-4.5); POTASSIUM 4.1 mmol/L (3.5-5.1)
--- NOTE | 2019-05-08 06:41 | Diag Imaging Result Doc PS360 ---
CHEST-PORTABLE - 05/08/2019 INDICATION: dyspnea COMPARISON: 05/07/2019 FINDINGS: Lung volumes are much improved. Otherwise stable diffuse bilateral interstitial infiltrates. Stable trace left pleural effusion. The right pleural effusion has resolved. IMPRESSION: Improvement from prior. Electronically signed by Damián Jimenez 05/08/2019 6:39 AM
[2019-05-08] MEDS: PRILOSEC PO SCH ×2 (06:54→21:20)
[2019-05-08] MEDS: ZYVOX PO SCH ×2 (08:23→21:20)
[2019-05-08] MEDS: LASIX IV SCH (08:23)
[2019-05-08] MEDS: LANOXIN PO SCH (08:23)
[2019-05-08] MEDS: LOPRESSOR PO SCH ×3 (08:23→21:23)
[2019-05-08] MEDS: XARELTO PO SCH (08:23)
[2019-05-08] MEDS: ALBUMIN 25% IV SCH (08:24)
[2019-05-08] MEDS: LOVENOX SUBQ SCH (08:24)
--- NOTE | 2019-05-08 10:28 | PROGRESS NOTE ---
DATE: 05/08/2019 SUBJECTIVE: I have seen and examined Mr. Coombs today. I understand early on he was able to take a few bites. He spoke a few words to the medical student. However, when I came back to reassess him, he was for most part pretty lethargic. The family was at the bedside at the time of the encounter. OBJECTIVE: Vital Signs: Blood pressure is 86/54, pulse of 114, respiration is 14, temperature 98 degrees. Patient was saturating about 90% on the Venturi mask. General: Mr. Coombs is an 83-year- old elderly gentleman. He is in bed. He seems to be in mild respiratory distress. Cardiovascular: Tachycardic, irregularly irregular. No murmurs. GI: Abdomen soft. Bowel sounds present. Extremities: No pedal edema. POURER BUGGY LADLE: The patient is very, very lethargic (almost stuporous), will barely open his eyes to extreme painful stimulation. Will not follow commands to me. LABORATORY DATA: CBC remains fairly the same. The pH is 7.29, pCO2 is 91, PaO2 is 88. Chemistry is also reviewed. Creatinine is going up to 2.2. The patient's I/Os, urine output is not documented. However, it is documented that he has negative balance of 4579. The patient looks somehow clinically dehydrated. IMAGING STUDIES: Today improvement from prior, lung volumes have improved. There is diffuse bilateral interstitial infiltrates. The patient is currently on Zyvox and meropenem. ASSESSMENT: 1. Sepsis on presentation secondary to bilateral pneumonia. Patient continues to be on antimicrobial therapy. 2. Hypoxemic respiratory failure with worsening hypercarbic respiratory failure. The patient is cycling between Venturi mask and BiPAP. However, pCO2 continues to be going up. We have addressed code status with the family and they are pending to get back to us. 3. Bilateral pleural effusion, the right more than the left. The patient underwent right-sided thoracentesis yesterday. The fluid analysis consisted with transudative fluid likely from CHF The Gram stain was unremarkable except for many WBC. The culture is negative. 4. Atrial fibrillation with rapid ventricular response. Patient continues to be on Cardizem drip. 5. Congestive heart failure, ejection fraction of 15%, associated with severe global hypokinesis. 6. Streptococcus sanguinous bacteremia. Repeat blood cultures have been negative. 7. Enterobacter cloacae urinary tract infection. This has been completely treated. Repeat urine culture is also negative. 8. Chronic cystitis, questionable for benign prostatic hypertrophy. The patient is on tamsulosin. 9. Altered mental status most likely multifactorial etiology but most contributing factor could be a CO2 narcosis. Hopefully with the BiPAP therapy, patient improves. He has not shown any improvement and I think he will need to be intubated. 10. Acute kidney injury. Creatinine continues to be worsen. I have withheld the Lasix since he looks clinically dry and his I/Os seems to be negative balance. We will give him a gentle fluid hydration today. So, in general, I think Mr. Coombs is getting worse from respiratory standpoint, continues to retain CO2. He is remarkably stuporous. I think he will need mechanical intubation to help support his respiratory system. I also think that he has so many comorbidities at this point which mitigate against a good clinical outcome. He has end-stage heart failure with ejection fraction of 15% associated with global hypokinesis. He is in atrial fibrillation. He is rate controlled on a drip, Respiratory failure and renal impairment. Mr. Coombs is currently in multi-organ failure and I think his prognosis continues to be guarded to poor. We have discussed code status with the family. At this point, they do not know what to do and they are going to consult with other family members and then get back to us by midday today. Palliative nurse consulted. cc: Pranav Lowe MD MTDD
--- NOTE | 2019-05-08 11:02 | INFECTIOUS DISEASE PROGRESS NO ---
DATE: 05/08/2019 PRESENT ILLNESS: The patient has a pneumonia with a parapneumonic effusion. He also has an Enterobacter urinary tract infection. MEDICATIONS: This is day 7 of Zyvox and day 4 of meropenem. PHYSICAL EXAMINATION: Vital Signs: Temperature is 97.6 degrees, pulse 85, respirations 18, blood pressure is 104/59. General: This is a chronically ill-appearing elderly male is lethargic. Head, Eyes, Ears Nose and Throat: He has decreased hearing. He appears to be able to see near objects. I did not notice any white patches in his mouth. He is wearing a BiPAP mask currently. Neck: No stiffness. Lungs: There were bilateral rhonchi. Cardiovascular: Heart rate is irregular. Abdomen: Soft and nontender. Neurologic: The patient is lethargic today. He did however move his extremities to request. Extremities: The patient has edema but no erythema in his legs. LAB AND X-RAY: Chest x-ray shows bilateral diffuse interstitial infiltrates. CBC shows a white count of 8200, hemoglobin 10.3, and platelet count 181,000. Blood gases show a pH of 7.29, a PO2 of 88, and a pCO2 of 91. Creatinine is 2.2. GFR is 29. Pleural fluid had a white blood cell count of 131 with only 18% being polymorphonuclear ones. Gram stain showed no organisms. Culture of the pleural fluid is pending. Chest x-ray shows bilateral diffuse interstitial infiltrates. ASSESSMENT AND PLAN: The patient has pneumonia with a parapneumonic effusion and urinary tract infection. I plan to continue the current antibiotics of Zyvox and meropenem. COMORBIDITIES: The patient is elderly. He has congestive heart failure with an ejection fracture of only 15%. He has chronic cystitis. cc: Wilver Hinojosa MD
[2019-05-08] MEDS: NS 1,000 ML IV SCH (11:29)
[2019-05-08] MEDS: CARDIZEM 100 MG/NS 100 MG/100 ML IVPB IV SCH (19:16)
[2019-05-08] MEDS ORDERED: BLISTEX MEDICATED BERRY LIP BALM TOP PRN (21:32)
[2019-05-09] MEDS: NS 1,000 ML IV SCH (00:20)
[2019-05-09] MEDS: MERREM 2 GM in NS 100 ML IV SCH (03:26)
[2019-05-09] MEDS: DUONEB (A & A) INH SCH ×3 (03:30→11:51)
[2019-05-09] MEDS: PRILOSEC PO SCH (06:00)
[2019-05-09] MEDS: XARELTO PO SCH (09:54)
[2019-05-09] MEDS: ZYVOX PO SCH (09:54)
[2019-05-09] MEDS: LANOXIN PO SCH (09:54)
[2019-05-09] MEDS: LOPRESSOR PO SCH (09:56)
[2019-05-09] MEDS: ALBUMIN 25% IV SCH (09:59)
[2019-05-09] MEDS: LOVENOX SUBQ SCH (09:59)
[2019-05-09 11:39] VITALS: BP 127/60
--- NOTE | 2019-05-10 21:10 | DISCHARGE SUMMARY ---
ADMISSION DATE: 04/21/2019 DISCHARGE DATE: 05/09/2019 CONSULTATIONS DURING ADMISSION: 1. Nephrology was consulted. The patient was seen by Dr. Albrecht. 2. Infectious Disease was consulted. The patient was seen by Dr. Hinojosa. 3. Cardiology was consulted. The patient was seen by Dr. Box and followed up by Dr. Andersen. INVASIVE PROCEDURES DONE DURING THIS ADMISSION: A right-sided thoracentesis was done on 05/07/2019. ADMISSION DIAGNOSES: 1. Atrial fibrillation with rapid ventricular response. 2. Chronic anticoagulation. 3. Acute kidney injury. 4. Elevated liver function tests. 5. Hyperkalemia. 6. Leukocytosis. DIAGNOSES AT THE TIME OF DISCHARGE: 1. Sepsis on presentation secondary to bilateral pneumonia. 2. Hypoxemic respiratory failure with worsening hypercarbia. 3. Bilateral pleural effusions. 4. Atrial fibrillation with rapid ventricular response on presentation. 5. Congestive heart failure, ejection fraction of 15%, associated with severe global hypokinesis. 6. Streptococcus sanguinis bacteremia. 7. Enterobacter cloacae urinary tract infection. 8. Chronic cystitis, questionable benign prostatic hypertrophy. 9. Altered mental status secondary to global encephalopathy. 10. Acute kidney injury. 11. Generalized weakness and deconditioning. 12. Poor performance status. DISCHARGE MEDICATIONS: 1. Zyvox 60 mg p.o. every 12 hours. 2. Digoxin 125 mcg p.o. daily. 3. Metoprolol 50 mg p.o. 3 times per day. 4. Omeprazole 20 mg p.o. b.i.d. 5. Levofloxacin 250 p.o. daily. PRESENTING COMPLAINT: Generalized weakness, increased shortness of breath. HISTORY OF PRESENTING COMPLAINT: Mr. Coombs is an 83-year-old male who presented to the emergency department because of generalized weakness. He was found to be in atrial fibrillation/RVR and also hypertensive. He was initially started on a Cardizem drip, which improved his pulse rate some. He was admitted to the [facility] for further medical care. HOSPITAL COURSE: Mr. Coombs was admitted to [facility]. He was found to be bacteremic. Blood cultures came back positive for Streptococcus sanguinis, and ID was consulted. The urine also came back positive for Enterobacter. Medication changes were done. Antibiotic management was all done by Infectious Disease. The patient also did have did have acute kidney injury and was evaluated by Nephrology. Mr. Coombs, during the hospital course, did not really show any remarkable improvement. He did have some congestive heart failure, for which Cardiology evaluated him, as well as for the atrial fibrillation/RVR. At some point a decision was made to tap the right pleural fluid to improve his breathing. After thoracentesis, he did slightly better; however he continues to be altered. PCO2 continues to be elevated. He has spent 18 days in the hospital with no remarkable improvement. The palliative nurse was consulted, and the patient's family decided to go home on hospice. Mr. Coombs has been on hospice, and they had made him a DO NOT RESUSCITATE level 1, no intubation and no chest compression. Mr. Coombs this morning refers to be doing fairly okay. We are going to discharge him to home with hospice on his regular medication. He also going to be taking Levaquin for the infectious diseases. All the discharge instructions have been discussed with him and the family, and they are all in agreement. TIME SPENT: The time spent for discharge is 38 minutes. cc: Pranav Lowe MD
== END 2019-05-09 14:23 | disposition hospice, home (50) | DRG 871 ==
LOC: ED 10:30 → EDIPHOLD 17:42 → SUATTDRO 17:42 → ICU 04-22 10:44 → 2N 04-26 08:19
PROVIDERS: ATTEND Internal Medicine